=== PATIENT | female | born 1940 | race Caucasian/White ===

== ENCOUNTER 2023-03-16 11:05 | Outpatient (AMB) | payer MEDICARE, BC, SELFPAY ==
--- NOTE | 2023-03-16 11:16 | MHC.OFFVIS ---
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 She is here with her and daughter. They report patient has had some issues with memory over the last few years. The family reports she's had several tests done in the past and was found to be ok. The family doesn't feel she has had much memory loss but her PCP doesn't agree with test results from pt's neurological testing. Family feels her main issue is her hearing and mobility. 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 Required: No Allergies No Known Allergies Allergy (Verified 03/16/23 11:18) Medication List - Last Reconciled 03/16/23 by Shauna Odonnell MD antiarthritic combination no.2 (glucosamine-chondroitin) mg PO ascorbate calcium (vitamin C) 1 g PO Q6H ascorbate calcium (vitamin C) 1 g PO Q6H atorvastatin 10 mg PO DAILY biotin 1,000 mcg PO DAILY cholecalciferol (vitamin D3) 25 mcg PO DAILY fluticasone propionate 50 mcg/actuation (Allergy Relief (fluticasone)) 1 spray intranasal QDAY levothyroxine 75 mcg PO DAILY mecobalamin (vitamin B12) mcg PO pantoprazole 40 mg PO BID vitamins A,C,A-ueqm-xrqsxp 4,296 mcg-226 mg-90 mg (PreserVision AREDS) 1 cap PO BID HPI HPI Comments History of Present Illness Details 82y/o female comes for evaluation of memory issues. she has long h/o depression and anxiety since her 40s and well controlled. Her celexa was stopped few years ago and her depression worsened.she has episodes of crying, becomes very anxious during appointments.she is very attached to her dog and when her dog was diagnsoed with heart murmur she has been worrying a lot. her dog sleeps with her and that disrupts her sleep SHe is accompanied by her daughter and who helps with history.SHe reports that her memory issues are mild and calls them senior moments. she is unable to describe her memory issues she also has mobility issues and does not drive. she had a head injury 20 years ago when she fell off the stairs. [facility] Medical History Mild cognitive impairment Colonic polyp Post concussion syndrome Hiatal hernia Hyperlipidemia H pylori ulcer COPD (chronic obstructive pulmonary disease) Anxiety Depression Surgical History History of lumbosacral spine surgery Family History Father No problems noted. Mother No problems noted. Social History Household Members: Spouse Housing: House Alcohol intake: never Patient Tobacco Use Status: Never used Tobacco Physical Exam Vital Signs: Last Vital Signs Pulse 71 03/16/23 11:21 Resp 17 03/16/23 11:21 BP 146/92 H 03/16/23 11:21 Pulse Ox 94 03/16/23 11:21 Oxygen Delivery Method Room Air 03/16/23 11:21 BMI result Body Mass Index 26.6 Const General: cooperative, healthy appearing and anxious Nutritional Appearance: average body habitus Orientation/consciousness: patient oriented x3 Eyes Pupils: Equal, round and reactive pupils present Neuro General: patient oriented x3, tone normal, moves all extremities and no focal motor deficits Cranial nerves: Yes Equal, round and reactive pupils present, Yes Bilaterally intact EOM present, Yes Nystagmus not present, Yes Normal facial strength present and Yes Midline tongue present Cognition (Neuro): abnormal cognition Gait exam (Neuro): Antalgic gait present and Other gait observations present (wide based gait , antalgic, scoliosis ) Motor exam (neuro): Other motor observations present (syed weakness of foot dorsiflexion) Deep tendon reflexes (DTR's): Right triceps reflex intensity grade: 2+, Left triceps reflex intensity grade: 2+, Rt Biceps (C5, C6): 2+, Left biceps reflex intensity grade: 2+, Right brachioradialis reflex intensity grade: 2+, Left brachioradialis reflex intensity grade: 2+, Right patellar reflex intensity grade: 2+ and Left patellar reflex intensity grade: 2+ Coordination: [id number] test normal Orientation What is the (year) (season) (date) (day) (month)?: year, season, date, day and month Where are we (state) (county) (town or city) (hospital) (floor)?: state, county, town or city, hospital/clinic and floor Registration Name of 3 unrelated objects clearly and slowly, then ask patient to repeat all 3 of them. (1st repeat determines score. Make sure they can repeat all three): object 1, object 2 and object 3 Recall Ask patient to repeat the 3 items from question #3.: object 1 and object 2 Language Show patient a wristwatch & ask what it is. Repeat for pencil.: watch and pencil Ask the patient to repeat the phrase 'No ifs, ands, or buts' after you.: correct Ask the patient to 'take a piece of paper with their right hand' 'fold paper in half' 'place paper on floor': take paper in right hand, fold paper in half and place paper on floor Print the sentence 'CLOSE YOUR EYES' on a piece. If patient actually closes eyes then score.: followed written direction Give patient a blank piece of paper & ask to write a sentence. Score if it contains a noun & verb.: sentence contains subject and verb Ask patient to copy figure of intersecting pentagons exactly. Score if all 10 angles & 2 intersects are included.: all 10 angles present & 2 are intersected Score Score: 24 Assessment & Plan Assessment & Plan (1) Mild cognitive impairment: Comment: vs early dementia, related to poorly controlled anxiety, hearing impairment Code(s): G31.84 - Mild cognitive impairment of uncertain or unknown etiology Plan CT and lab reports from PCP for review Discussed about various risk factors for dementia including hearing impairment.encouraged he rto use hearing aids consistently I will restart her on citalopram 10mg qd for better control of her mood Suggested to use cane or walker for more stability. Medications: New citalopram 10 mg PO DAILY 30 tabs 6RF Coding Level of Care Code New Pt Level 4 (08871) Diagnoses Mild cognitive impairment G31.84
[2023-03-16 11:21] VITALS: BP 146/92; PULSE 71; RESP 17; O2SAT 94; BMI 26.6
== END 2023-03-16 12:11 | disposition home or self-care (01) ==
PROVIDERS: PCP Internal Medicine; Visit Provider Psychiatry & Neurology Neurology
DX: G31.84 Mild cognitive impairment of uncertain or unknown etiology (principal)
CPT/HCPCS: 99204

== ENCOUNTER → 2023-03-16 11:05 | Outpatient (BNVA) | payer MEDICARE, BC, SELFPAY | PROVIDERS: PCP Internal Medicine; Visit Provider Psychiatry & Neurology Neurology | DX: G31.84 Mild cognitive impairment of uncertain or unknown etiology (principal) | CPT/HCPCS: 99202 ==

== ENCOUNTER 2023-09-14 13:55 | Outpatient (AMB) | payer MEDICARE, BC, SELFPAY ==
--- NOTE | 2023-09-14 13:57 | A.OFFVIS_ITS ---
Vital Signs 09/14/23 13:58 Height 5 ft 3 in Weight 158 lb 2 oz BMI 28.0 BP 120/76 Blood Pressure Location Rt brachial Position Sitting Respiration 16 Pulse 72 Pulse Source Pulse Oximeter Pulse Oximetry (%) 76 L Oxygen Delivery Method Room Air Intake Visit Reasons: 6 mo f/u -Memory Decline-CONF Intake Note: Pt presents for a 6 month follow up for mild cognitive impairment. Route Delivery Manager Required: No Allergies No Known Allergies Allergy (Verified 09/14/23 13:57) Medication List - Last Reconciled 09/14/23 by Shauna Odonnell MD antiarthritic combination no.2 (glucosamine-chondroitin) mg PO ascorbate calcium (vitamin C) 1 g PO Q6H ascorbate calcium (vitamin C) 1 g PO Q6H atorvastatin 10 mg PO DAILY biotin 1,000 mcg PO DAILY cholecalciferol (vitamin D3) 25 mcg PO DAILY citalopram 10 mg PO DAILY fluticasone propionate 50 mcg/actuation (Allergy Relief (fluticasone)) 1 spray intranasal QDAY levothyroxine 75 mcg PO DAILY mecobalamin (vitamin B12) mcg PO pantoprazole 40 mg PO BID vitamins A,C,R-mmvg-mushqc 4,296 mcg-226 mg-90 mg (PreserVision AREDS) 1 cap PO BID HPI Comments Details: 83y/o female comes for follow up of memory issues. Her mood has improved with citalopram . SHe is accompanied by her daughter and who helps with history.SHe reports that her memory issues are mild and calls them senior moments. she is unable to describe her memory issues she also has mobility issues and does not drive. she had a head injury 20 years ago when she fell off the stairs. As per family she has short term recall is worse. [facility] Medical History Mild cognitive impairment Colonic polyp Post concussion syndrome Hiatal hernia Hyperlipidemia H pylori ulcer COPD (chronic obstructive pulmonary disease) Anxiety Depression Surgical History History of lumbosacral spine surgery Family History Father No problems noted. Mother No problems noted. Social History Household Members: Spouse Housing: House Alcohol intake: never Patient Tobacco Use Status: Never used Tobacco Physical Exam Vital Signs: Last Vital Signs Pulse 72 09/14/23 13:58 Resp 16 09/14/23 13:58 BP 120/76 09/14/23 13:58 Pulse Ox 76 L 09/14/23 13:58 Oxygen Delivery Method Room Air 09/14/23 13:58 BMI result Body Mass Index 28.0 Const General: cooperative, healthy appearing and anxious Nutritional Appearance: average body habitus Orientation/consciousness: patient oriented x3 Eyes Pupils: Equal, round and reactive pupils present Neuro General: patient oriented x3, tone normal, moves all extremities and no focal motor deficits Cranial nerves: Yes Equal, round and reactive pupils present, Yes Bilaterally intact EOM present, Yes Nystagmus not present, Yes Normal facial strength present and Yes Midline tongue present Cognition (Neuro): abnormal cognition Gait exam (Neuro): Antalgic gait present and Other gait observations present (wide based gait , antalgic, scoliosis ) Motor exam (neuro): Other motor observations present (syed weakness of foot dorsiflexion) Coordination: ehsjxk-by-xldb test normal Assessment & Plan Assessment & Plan (1) Mild cognitive impairment: Comment: vs early dementia, related to poorly controlled anxiety, hearing impairment Code(s): G31.84 - Mild cognitive impairment of uncertain or unknown etiology Category: Medical Plan CT and lab reports from PCP for review Discussed about various risk factors for dementia including hearing impairment.encouraged he rto use hearing aids consistently Continue citalopram 10mg qd for better control of her mood I will namenda XR 7 mg and titrate upto 28 mg qd Will add donepezil after she is stable on memantine. Medications: New memantine 7 mg PO DAILY 14 ea 0RF memantine start after 2 week course of 21mg 28 mg PO DAILY 30 ea 6RF memantine start after 2 week course of 7mg 14 mg PO DAILY 14 ea 0RF memantine start after the course of 14 mg 21 mg PO DAILY 14 ea 0RF Coding Level of Care Code Est Pt Level 4 (74353) Diagnoses Mild cognitive impairment G31.84
[2023-09-14 13:58] VITALS: BP 120/76; PULSE 72; RESP 16; O2SAT 76; BMI 28.0
== END 2023-09-14 14:41 | disposition home or self-care (01) ==
PROVIDERS: PCP Internal Medicine; Visit Provider Psychiatry & Neurology Neurology
DX: G31.84 Mild cognitive impairment of uncertain or unknown etiology (principal)
CPT/HCPCS: 99214

== ENCOUNTER → 2023-09-14 13:55 | Outpatient (BNVA) | payer MEDICARE, BC, SELFPAY | PROVIDERS: PCP Internal Medicine; Visit Provider Psychiatry & Neurology Neurology | DX: G31.84 Mild cognitive impairment of uncertain or unknown etiology (principal); G93.89 Other specified disorders of brain | CPT/HCPCS: 99212 ==

== ENCOUNTER 2024-04-03 14:10 | Outpatient (AMB) | payer MEDICARE, BC, SELFPAY ==
[2024-04-03 14:11] VITALS: BP 122/72; BMI 28.5
--- NOTE | 2024-04-03 14:11 | MHC.OFFVIS ---
Vital Signs 04/03/24 14:11 Height 5 ft 3 in Weight 161 lb BMI 28.5 BP 122/72 Blood Pressure Location Rt brachial Position Sitting Intake Visit Reasons: 6 mo f/u -Memory Decline Intake Note: patient presents for follow up memory Allergies No Known Allergies Allergy (Verified 04/03/24 14:14) Medication List - Last Reconciled 04/03/24 by Ken Camarena PA-C antiarthritic combination no.2 (glucosamine-chondroitin) mg PO ascorbate calcium (vitamin C) 1 g PO Q6H ascorbate calcium (vitamin C) 1 g PO Q6H atorvastatin 10 mg PO DAILY biotin 1,000 mcg PO DAILY cholecalciferol (vitamin D3) 25 mcg PO DAILY citalopram 10 mg PO DAILY fluticasone propionate 50 mcg/actuation (Allergy Relief (fluticasone)) 1 spray intranasal QDAY levothyroxine 75 mcg PO DAILY mecobalamin (vitamin B12) mcg PO memantine 28 mg PO DAILY pantoprazole 40 mg PO BID vitamins A,C,A-fheb-yqxfcs 4,296 mcg-226 mg-90 mg (PreserVision AREDS) 1 cap PO BID HPI Comments Details: 83y/o female comes for follow up of memory issues. Interval medical history: January procedure Trabeculoplasty, for glaucoma, [employer]. She is accompanied by her daughter and who help with history. She has walking difficulty and weakness, can't lift her feet, gait and balance issues, now uses the walker more so than cane daily. Distance is limited and shorter about 500 feet per outing. Her mood is irritable, combative, yells and refuses do activities. Goes to the senior center in [place] 2-3 times a week, has dinner there occasionally. She is unable to describe her memory issues, short term memory is going, doesn't formulate sentences and difficulty finding words per daughter. Sleeps more during the day, watches tv all night, 2x bathroom. Needs help with showering, getting dressed, cooking, and cleaning. She also has mobility issues and does not drive. MMSE 16 [facility] Medical History Mild cognitive impairment Colonic polyp Post concussion syndrome Hiatal hernia Hyperlipidemia H pylori ulcer COPD (chronic obstructive pulmonary disease) Anxiety Depression Surgical History History of lumbosacral spine surgery Family History Father No problems noted. Mother No problems noted. Social History Household Members: Spouse Housing: House Alcohol intake: never Patient Tobacco Use Status: Never used Tobacco Review of Systems Const All systems reviewed & are unremarkable except as noted in HPI and below Physical Exam Vital Signs: Last Vital Signs BP 122/72 04/03/24 14:11 BMI result Body Mass Index 28.5 Orientation What is the (year) (season) (date) (day) (month)?: year, season, date and month Where are we (state) (county) (town or city) (hospital) (floor)?: state, town or city and floor Registration Name of 3 unrelated objects clearly and slowly, then ask patient to repeat all 3 of them. (1st repeat determines score. Make sure they can repeat all three): object 1, object 2 and object 3 Language Show patient a wristwatch & ask what it is. Repeat for pencil.: watch and pencil Ask the patient to repeat the phrase 'No ifs, ands, or buts' after you.: incorrect Ask the patient to 'take a piece of paper with their right hand' 'fold paper in half' 'place paper on floor': take paper in right hand, fold paper in half and place paper on floor Print the sentence 'CLOSE YOUR EYES' on a piece. If patient actually closes eyes then score.: followed written direction Score Score: 16 Results Reviewed Results Reviewed: MRI 2023 CT 2023 Assessment & Plan Assessment & Plan (1) Dementia: Code(s): F03.90 - Unspecified dementia, unspecified severity, without behavioral disturbance, psychotic disturbance, mood disturbance, and anxiety Category: Medical Qualifiers: Dementia type: Alzheimer's Dementia severity: moderate Dementia behavioral or psychological symptom: with anxiety (2) Mild cognitive impairment: Comment: vs early dementia, related to poorly controlled anxiety, hearing impairment Code(s): G31.84 - Mild cognitive impairment of uncertain or unknown etiology Category: Medical (3) Depression: Code(s): F32.A - Depression, unspecified Category: Medical Qualifiers: Active/Remission status: currently active Major depression episode severity: unspecified Major depression recurrence: unspecified whether recurrent (4) Anxiety: Code(s): F41.9 - Anxiety disorder, unspecified Category: Medical Plan Reviewed MRI [address] 2023 Discussed various risk factors for dementia including hearing impairment, encouraged her to use hearing aids consistently. Continue citalopram 20mg PO qd for irritable mood. Continue Namenda XR 28 mg PO daily. Donepazil will discuss at next visit. Patient Education for health care technician burden, contact [facility] for assistance with ADLs. Follow up in 6 months, may call the clinic with any urgent concerns. MMSE was 16/30 today. Orders: [facility]errals [facility] Referral F03.90 - Unspecified dementia, unspecified severity, without behavioral disturbance, psychotic disturbance, mood disturbance, and anxiety Medications: Changed From citalopram 10 mg PO DAILY 90 tabs 1RF F32.A - Depression, unspecified To citalopram 20 mg (2 x 10 mg) PO DAILY 90 tabs 1RF depression F32.A - Depression, unspecified Discontinued memantine Discontinued Reason: Doctor's Order 7 mg PO DAILY 14 ea 0RF memantine start after 2 week course of 7mg Discontinued Reason: Doctor's Order 14 mg PO DAILY 14 ea 0RF memantine start after the course of 14 mg Discontinued Reason: Doctor's Order 21 mg PO DAILY 14 ea 0RF Coding Level of Care Code Est Pt Level 4 (78645) Diagnoses Dementia F03.90 Dementia type: Alzheimer's Dementia severity: moderate Dementia behavioral or psychological symptom: with anxiety Mild cognitive impairment G31.84 Depression F32.A Active/Remission status: currently active Major depression episode severity: unspecified Major depression recurrence: unspecified whether recurrent Anxiety F41.9
== END 2024-04-03 15:18 | disposition home or self-care (01) ==
PROVIDERS: PCP Internal Medicine; Visit Provider Physician Assistant Medical
DX: F03.90 Unspecified dementia, unspecified severity, without behavioral disturbance, psychotic disturbance, mood disturbance, and anxiety (principal); F32.A Depression, unspecified; F41.9 Anxiety disorder, unspecified
CPT/HCPCS: 99214

== ENCOUNTER → 2024-04-03 14:10 | Outpatient (BNVA) | payer MEDICARE, BC, SELFPAY | PROVIDERS: PCP Internal Medicine; Visit Provider Physician Assistant Medical | DX: F03.90 Unspecified dementia, unspecified severity, without behavioral disturbance, psychotic disturbance, mood disturbance, and anxiety (principal); F32.A Depression, unspecified; F41.9 Anxiety disorder, unspecified | CPT/HCPCS: 99212 ==

== ENCOUNTER 2024-10-02 14:56 | Outpatient (AMB) | payer MEDICARE, BC, SELFPAY ==
--- NOTE | 2024-10-02 15:06 | A.OFFVIS_ITS ---
Vital Signs 10/02/24 15:07 Height 5 ft 3 in Weight 166 lb BMI 29.4 BP 122/70 Blood Pressure Location Rt brachial Position Sitting Pulse 76 Pulse Source Pulse Oximeter Pulse Oximetry (%) 96 Oxygen Delivery Method Room Air Intake Visit Reasons: 6 mo follow up Intake Note: Patient presents follow up dementia medication. VNA not in chart Allergies No Known Allergies Allergy (Verified 04/03/24 14:14) HPI Comments Details: 83y/o female comes for follow up of cognitive decline. Patient had one fall 2 weeks ago, as Farshad was helping her to stand up from the couch, she lost her balance and fell on top of him and did not hit her head. Farshad did sustain a superficial 1inch laceration to the l. knee. She is accompanied by her daughter and Farshad who help with history today. MRI/ CT/ MMSE reviewed today. Gait: She has difficulty with walking due to gait and balance issues. She c/o fatigue as she can not get out of a chair, can't lift her feet, now uses the walker more days than her cane, we adjusted the height on the rolling walker so she is not hunched over, she declines PT today, as Farshad is working with her daily on exercises which help her strength and mobility. She continues to be limited with distance as it is getting shorter, now about 500 feet per outing, and starts to feel unsteady on her feet, stairs are very difficult for her to climb and avoids them she has to lean and hold on to rails to prevent falls. Her mood is pleasant today, however she can become combative and aggressive, yells and refuses do activities. She goes to the senior center in [place] 2-3 times a week, and has dinner there occasionally. Cognitive decline: She is unable to describe her memory issues, stm is poor at baseline and can not formulate sentences, has difficulty finding words per daughter and needs redirection multiple times a day. She is requiring more assistance with showering, getting dressed, cooking and cleaning. She can not complete puzzles, is sleeping more during the day, watches tv all night long with 2x bathroom breaks, Farshad requests a sleep aide to help with insomnia. He declines at home physical therapy today. MMSE was 16/30 at last visit, today she speaks about making cakes with her sister and says she enjoys this very much. We discuss starting melatonin 5mg po daily for 2 weeks if not helpful with insomnia she can start mirtazapine 7.5mg po daily at bedtime, and provided patient education re: sleep hygiene. She denies headache, migraines, visual disturbances and or vertigo. [facility] Medical History Mild cognitive impairment Colonic polyp Post concussion syndrome Hiatal hernia Hyperlipidemia H pylori ulcer COPD (chronic obstructive pulmonary disease) Anxiety Depression Surgical History History of lumbosacral spine surgery Family History Father No problems noted. Mother No problems noted. Social History Household Members: Spouse Housing: House Alcohol intake: never Patient Tobacco Use Status: Never used Tobacco Physical Exam Vital Signs: Last Vital Signs Pulse 76 10/02/24 15:07 BP 122/70 10/02/24 15:07 Pulse Ox 96 10/02/24 15:07 Oxygen Delivery Method Room Air 10/02/24 15:07 BMI result Body Mass Index 29.4 Const General: cooperative, healthy appearing and anxious Nutritional Appearance: average body habitus Orientation/consciousness: patient oriented x3 Eyes Pupils: Equal, round and reactive pupils present Neuro Other: Follows directions really well on exam and engages in conversation re: cake making activities. General: patient oriented x3, tone normal, moves all extremities and no focal motor deficits Cranial nerves: Yes Equal, round and reactive pupils present, Yes Normal facial strength present and Yes Midline tongue present Cognition (Neuro): abnormal cognition Gait exam (Neuro): Antalgic gait present and Other gait observations present (wide based gait , antalgic, scoliosis ) Motor exam (neuro): Other motor observations present (syed weakness of foot dorsiflexion) Coordination: [id number] test normal Psych Attitude: cooperative Results Reviewed Results Reviewed: PT evaluation noted 04/2024, recommendation to continue home care pt as patient requires assistance with ambulating and transferring due to lower extremity weakness bilaterally, PT would be helpful in strength and balance difficulties. Assessment & Plan Assessment & Plan (1) Insomnia: Code(s): G47.00 - Insomnia, unspecified Category: Medical Qualifiers: Insomnia type: primary Qualified Code(s): F51.01 - Primary insomnia (2) Dementia: Comment: pt is not interested in Leqembi or Kisunla therapy at this time. Code(s): F03.90 - Unspecified dementia, unspecified severity, without behavioral disturbance, psychotic disturbance, mood disturbance, and anxiety Category: Medical Qualifiers: Dementia type: Alzheimer's Dementia severity: mild Dementia behavioral or psychological symptom: with mood disturbance Qualified Code(s): G30.0 - Alzheimer's disease with early onset; F02.A3 - Dementia in other diseases classified elsewhere, mild, with mood disturbance (3) Mild cognitive impairment: Comment: vs early dementia, related to poorly controlled anxiety, hearing impairment Code(s): G31.84 - Mild cognitive impairment of uncertain or unknown etiology Category: Medical (4) Depression: Code(s): F32.A - Depression, unspecified Category: Medical Qualifiers: Major depression recurrence: unspecified whether recurrent Active/Remission status: currently active Major depression episode severity: mild Depression Type: major depressive disorder Qualified Code(s): F32.0 - Major depressive disorder, single episode, mild (5) Anxiety: Code(s): F41.9 - Anxiety disorder, unspecified Category: Medical Plan: sun downing? depression? Plan Dementia Discussed various risk factors for dementia including hearing impairment, vision, and sense or smell, encouraged her to use hearing aids consistently. Depression Continue citalopram 20mg PO qd for irritable mood. Dementia with mood disturbances Continue Namenda XR 28 mg PO daily and continue Donepazil daily Insomnia continue melatonin 5mg po daily 3 hours prior to bedtime, for 2 weeks if melatonin is ineffective may start her on Mirtazapine 7.5mg po daily at bedtime to regulate sleep cycle. Sleep hygiene reviewed to regulate the circardian rhythm and sleep disturbances. Patient Education for resident care spec burden, contact [facility] Elderly care services for assistance with home daycare director if needed. Follow up in 6 months, may call the clinic with any urgent concerns. Medications: New mirtazapine take one 7.5mg tablet by mouth at bedtime for insomnia. 7.5 mg PO BEDTIME 60 days 60 tabs 1RF insomnia MDD 7.5mg F03.90 - Unspecified dementia, unspecified severity, without behavioral disturbance, psychotic disturbance, mood disturbance, and anxiety, G47.00 - Insomnia, unspecified melatonin-pyridoxal phos (B6) 2.5 mg- 338 mcg take one tablet daily sublingually by mouth 1 tab sublingual BEDTIME 30 tabs 1RF sleep disturbances G47.00 - Insomnia, unspecified Patient Instructions: Sleep Hygiene provided: set a scheduled bedtime and wake time to help regulate the circadian rhythm and balance the release of pituitary hormones. Sleep in a dark room, temperatures below 68 degrees, and no devices n bed. Limit caffeinated products 6 hours prior to bed, and limit fluids 2-4 hours prior to bed. Gentle night yoga, diffusing essential oils, and playing soft music can be relaxing. 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
[2024-10-02 15:07] VITALS: BP 122/70; PULSE 76; O2SAT 96; BMI 29.4
--- OUTSIDE RECORDS SUMMARY | 2024-10-02 16:12 | XMS_ITS | Patient Health Record ---
Author Organization [facility] Diane maria de jesus [place] Address [address] [place] [address] Care Team Providers Care Sanitarian Aide Name Role Phone Manuela HENSON, Fuentes Nieves Primary Care Provider UnaLiana Corral Unavailable [phone] Allergies Allergen (clinical drug ingredient) Drug/Non Drug Allergy documented on EMR Reaction Allergy Type Onset Date Status Seasonale Unknown Drug Allergy Active Reason For Referral No Information Medications Medication SIG (Take, Route, Frequency, Duration) Notes Start Date End Date Status CeleXA Unknown Calcium 1500 MG 1 tablet with food O rally Twice a day for 30 day(s) Unknow n Pantoprazole Sodium Active Atorvastatin Calcium Active Citalopram Hydrobromide Active AFO-fixed . 1 . Wear daily for . Unknown Levothyroxine Sodium Active Multivitamins Unknow n Social History Tobacco Use: Social History Observation Description Date Details (start date - stop date) Former Smoker NA - NA Tobacco Use/Smoking Question Answer Notes Are you a: former smoker Additional Findings: Tobacco Non-User Current no n-smoker Alcohol Screen Question Answer Notes Did you have a drink containing alcohol in the p ast year? No Points 0 Interpretation Negative Tobacco use other than smoking: Question Answer Notes Are you an other tobacco user? No Problems Problem Type SNOMED Code ICD Code Onset Dates Problem Status W/U Status Risk Notes Problem Acquired hallux valgus (46095966) Hallux valgus (acquired), right foot (M20.11) Active confirmed Problem Other hammer toe(s) (acquired), right foot (M20.41) Active confirmed Encounters Encounter Location Date Provider Diagnosis [facility] [address] [place] [address] [facility] [address] [place] [address] 03/06/2024 Liana Aviles Plan Of Treatment Pending Test Test Name Order Date X ray : Foot, right 3V 07/15/2020 X ray : Ankle, right 3V 09/14/2011 Insurance Providers Payer Name Payer Address Payer Phone Subscriber Number Group Number Insured Name Patient Relationship to Insured Coverage Start Date Coverage End Date Medicare National Govt Sv[employer] [address] [facility] [address] [id number] Maria A Lawson Self - patient is the insured [employer] [address] [place] [address] [phone] [id number] Maria A Lawson Self - patient is the insured Medical (General) History Medical History History ICD Code measles Back,Hip,and Knee pain Depression Thyroid disorder Arthritis Surgical History Surgery Date(Month/Year) hand surgery uterine suspension
== END 2024-10-02 16:05 | disposition home or self-care (01) ==
LOC: HO.HSMS 14:56
PROVIDERS: PCP Internal Medicine; Visit Provider Physician Assistant Medical
DX: F51.01 Primary insomnia (principal); G30.0 Alzheimer's disease with early onset; F02.A3 Dementia in other diseases classified elsewhere, mild, with mood disturbance; F32.0 Major depressive disorder, single episode, mild; F41.9 Anxiety disorder, unspecified
CPT/HCPCS: 99214

== ENCOUNTER → 2024-10-02 14:56 | Outpatient (BNVA) | payer MEDICARE, BC, SELFPAY | PROVIDERS: PCP Internal Medicine; Visit Provider Physician Assistant Medical | DX: G30.0 Alzheimer's disease with early onset (principal); F02.A3 Dementia in other diseases classified elsewhere, mild, with mood disturbance; F51.01 Primary insomnia; F32.0 Major depressive disorder, single episode, mild; F41.9 Anxiety disorder, unspecified | CPT/HCPCS: 99212 ==

== ENCOUNTER 2025-01-04 11:01 | Outpatient (AMB) | payer MEDICARE, BC, SELFPAY ==
--- OUTSIDE RECORDS SUMMARY | 2024-03-13 04:30 | XMS_ITS ---
Author Organization [facility] Address [address] [place] [address] Care Team Providers Care Concrete Fence Builder Name Role Phone Fuentes Roy MD Primary Care Provider Unav Liana Carrillo Unavailable [phone] Allergies Allergen (clinical drug ingredient) Drug/Non Drug [...] Provider Diagnosis [facility] [address] [place] [address] 03/13/2024 Liana Aviles Plan Of Treatment No Information Progress Notes * Maria A RIZO MDOB:[birth year] (84 yo F)Acc No.[id number]:03/13/2024 Progress Notes Patient: Maria A AMADOR Provider: Contreras Aviles DPM :1940 A ge:83 Y S ex:Female Date:03/13/2024 Address:[address], [id number] Pcp:Fuentes Roy MD Subjective: * Chief Complaints: [...] 05/13/2023 Generated for Dewayne dejesus/Yaritza/Cemitting on: 0 01/04/2025 12:03 PM EDT
[2025-01-04 11:08] VITALS: BP 104/60; PULSE 82; O2SAT 96
--- NOTE | 2025-01-04 11:08 | MHC.OFFVIS ---
Vital Signs 01/04/25 11:08 Height 5 ft 3 in BMI Reason not done Patient refused/unable BP 104/60 Blood Pressure Location Rt brachial Position Sitting Pulse 82 Pulse Source Pulse Oximeter Pulse Oximetry (%) 96 Oxygen Delivery Method Room Air Intake Visit Reasons: 3m follow up Intake Note: Patient presents follow up Alzheimer's medication. Accompanied by: Daughter Allergies No Known Allergies Allergy (Verified 01/04/25 11:14) HPI Comments Details: 84y/o female comes for follow up of cognitive decline. She is accompanied with her daughter and Farshad who help with history taking. She has difficulty with walking due to gait and balance issues. She declines PT, however is doing 20 min of recumbent biking daily. She can not get out of a chair, can't lift her feet, now uses the rolling walker more days than her cane and now about 500 feet per outing. She starts to feel unsteady on her feet, going up or down the stairs is difficult for her, she will avoid them. She leans over to the side to hold on to the railings. Denies falls but is unsteady. Cognitive decline: She is unable to describe her memory issues. Stm is poor at baseline and can not formulate sentences she has difficulty finding words per daughter and needs repetition, visual cues and redirection multiple times a day. She is requires more assistance with ADLs, showering, getting dressed, cooking and cleaning. Her daughter assigns her chores to help out with dinner and engage her in activities. She can not complete puzzles, she sleeps through the day and watches tv all night long with 2 bathroom breaks. Her mood is pleasant today, however she can be stubborn, yells and refuses do activities. She goes to the [facility] center in [place] 2-3 x per week, and has dinner there occasionally.She takes melatonin as needed to help with insomnia but this is not helpful as she feels completely out of it. Mirtazapine 7.5mg was too strong for her. She denies headache, migraines, visual disturbances and or vertigo. Diet is good, she is selective about her food intake. [facility] Medical History Mild cognitive impairment Colonic polyp Post concussion syndrome Hiatal hernia Hyperlipidemia H pylori ulcer COPD (chronic obstructive pulmonary disease) Anxiety Depression Surgical History History of lumbosacral spine surgery Family History Father No problems noted. Mother No problems noted. Social History Household Members: Spouse Housing: House Alcohol intake: never Patient Tobacco Use Status: Never used Tobacco Physical Exam Vital Signs: Last Vital Signs Pulse 82 01/04/25 11:08 BP 104/60 01/04/25 11:08 Pulse Ox 96 01/04/25 11:08 Oxygen Delivery Method Room Air 01/04/25 11:08 Assessment & Plan Assessment & Plan (1) Insomnia: Code(s): G47.00 - Insomnia, unspecified Category: Medical Qualifiers: Insomnia type: primary Qualified Code(s): F51.01 - Primary insomnia (2) Dementia: Comment: pt is not interested in Leqembi or Kisunla therapy at this time. Code(s): F03.90 - Unspecified dementia, unspecified severity, without behavioral disturbance, psychotic disturbance, mood disturbance, and anxiety Category: Medical Qualifiers: Dementia behavioral or psychological symptom: with mood disturbance Dementia severity: mild Dementia type: Alzheimer's Qualified Code(s): G30.0 - Alzheimer's disease with early onset; F02.A3 - Dementia in other diseases classified elsewhere, mild, with mood disturbance (3) Mild cognitive impairment: Comment: vs early dementia, related to poorly controlled anxiety, hearing impairment Code(s): G31.84 - Mild cognitive impairment of uncertain or unknown etiology Category: Medical (4) Depression: Code(s): F32.A - Depression, unspecified Category: Medical Qualifiers: Active/Remission status: currently active Depression Type: major depressive disorder Major depression episode severity: mild Major depression recurrence: unspecified whether recurrent Qualified Code(s): F32.0 - Major depressive disorder, single episode, mild (5) Anxiety: Code(s): F41.9 - Anxiety disorder, unspecified Category: Medical Plan: sun downing? depression? Plan Dementia continue memantine 28mg po daily at bedtime with dinner. Speech and Hearing referral discussed various risk factors for dementia including hearing impairment, vision, and sense or smell, encouraged her to use hearing aids consistently, will referr to speech and hearing to assist. Depression continue citalopram 20mg PO qd for irritable mood. Insomnia continue melatonin 5mg po daily 3 hours prior to bedtime, for 2 weeks if melatonin, she could not tolerate mirtazapine. Sleep hygiene reviewed to regulate the circardian rhythm and sleep disturbances. MRI to evaluate for cerebral atrophy. Patient Education for patient care burden, contact [facility]. Elderly care services for assistance with home day care director if needed. Follow up in 6 months, Liquid vitamins if not able to tolerate otc supplements from [facility] or your favorite pharmacy. Labs requested from Joanne Villanueva at [facility] Dr. Manuela Rubio- 3 month follow up Orders: Orders MR head/brain wo/w con 01/04/25 G31.84 - Mild cognitive impairment of uncertain or unknown etiology, G30.0 - Alzheimer's disease with early onset, F02.A3 - Dementia in other diseases classified elsewhere, mild, with mood disturbance Referrals Speech and Hearing Referral G30.0 - Alzheimer's disease with early onset, F02.A3 - Dementia in other diseases classified elsewhere, mild, with mood disturbance, G31.84 - Mild cognitive impairment of uncertain or unknown etiology Medications: Refilled memantine start after 2 week course of 21mg 28 mg PO DAILY 30 ea 6RF Patient Instructions: Sleep Hygiene provided: set a scheduled bedtime and wake time to help regulate the circadian rhythm and balance the release of pituitary hormones. Sleep in a dark room, temperatures below 68 degrees, and no devices n bed. Limit caffeinated products 6 hours prior to bed, and limit fluids 2-4 hours prior to bed. Gentle night yoga, diffusing essential oils, and playing soft music can be relaxing. 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
--- OUTSIDE RECORDS SUMMARY | 2025-01-04 12:39 | XMS_ITS | Patient Health Record ---
Author Organization [facility] Address [address] [place] [address] Care Team Providers Care Cognos Bi Administrator Name Role Phone Manuela HENSON, Fuentes Nieves Primary Care Provider UnaLiana Corral Unavailable [phone] Allergies Allergen (clinical drug ingredient) Drug/Non Drug Allergy documented on EMR Reaction Allergy Type Onset Date Status Seasonale Unknown Drug Allergy Active Reason For Referral No Information Medications Medication SIG (Take, Route, Frequency, Duration) Notes Start Date End Date Status CeleXA Unknown Calcium 1500 MG 1 tablet with food O rally Twice a day; Duration: 30 day(s) Unknown Pantoprazole Sodium Active Atorvastatin Calcium Active Citalopram Hydrobromide Active AFO-fixed . 1 . Wear daily; Duration: [...] Status Risk Notes Problem Acquired hallux valgus (51083439) Hallux valgus (acquired), right foot (M20.11) Active confirmed Problem Acquired hammer toe of right foot ([id number] 105) Other hammer toe(s) (acquired), right foot (M20.41) Active confirmed Encounters Encounter Location Date Provider Diagnosis [facility] [address] [place] [address] 02/22/2024 Liana Aviles [facility] [address] [place] [address] 03/06/2024 Liana Aviles Plan Of Treatment Pending Test Test Name Order Date X ray : Foot, right 3V 07/15/2020 X ray : Ankle, right 3V 09/14/2011 Insurance Providers Payer Name Payer Address Payer Phone Subscriber Number Group Number Insured Name Patient Relationship to Insured Coverage Start Date Coverage End Date Medicare National Govt Svcs Inc [address] [place] [address] [id number] Maria A Lawson Self - patient is the insured [employer] [address] [place] [address] [id number] Maria A Lawson Self - patient is the insured Medical (General) History Medical History History ICD Code measles Back,Hip,and Knee pain Depression Thyroid disorder Arthritis Surgical History Surgery Date(Month/Year) hand surgery uterine suspension
--- OUTSIDE RECORDS SUMMARY | 2025-01-04 12:39 | XMS_ITS ---
Author Name [facility] Organization Unknown Care Team Organization Name Specialty Phone Email Start Date End Da te [facility] 12/20/2024 [facility] 03/10/2022 12/20/2023
--- OUTSIDE RECORDS SUMMARY | 2025-01-04 12:39 | XMS_ITS | Clinical Summary ---
Author Organization [address] Address [address] [place] [phone] Phone Care Team Providers Care Rampman Name Role Phone Fuentes Roy MD Primary Care Provider [phone] Allergies Active Allergy Reactions Criticality Noted Date Comments Other 03/04/2018 Seasonal Allergies Medications calcium carbonate/vitam in D3 (CALCIUM + D ORAL) OTC Active CYANOCOBALAMIN, VITAMIN B-12, ORAL Take by mouth daily. Active glucos sul 2KCl/msm/chond/ C/Mn (GLUCOSAMINE CHONDROITIN ORAL) 1 daily Active vit C/E/Zn/coppr/obed tein/zeaxan (PRESERVISION AREDS-2 ORAL) OTC Active Vitamin C tablet Take 100 mg by mouth daily. Active biotin 1 mg tablet OTC Active cholecalciferol (VITAMIN D-3) 25 mcg (1,000 unit) tablet OTC Active citalopram (CeleXA) 10 mg tablet Take 1 Tablet by mouth daily. Active fluticasone propionate (FLONASE) 50 mcg/actuation nasal spray 1 [place] by Nasal route daily. 04/16/20 15 Active memantine (NAMENDA XR) 28 mg extended release capsule Take 1 capsule (28 mg total) by mouth 1 (one) time each day. Neurologist Shauna Odonnell prescribed meds Active levothyroxine (SYNTHROID, LEVOTHROID) 50 mcg tablet TAKE 1 TABLET BY MOUTH DAILY WEDNESDAY- Y & TAKE 2 TABLETS ON SUNDAYS. 102 tablet 09/13/19 25 Active atorvastatin (LIPITOR) 10 mg tablet TAKE 1 TABLET BY MOUTH EVERY DAY 90 tablet 1 12/19/19 25 Active pantoprazole (PROTONIX) 40 mg EC tablet TAKE 1 TABLET BY MOUTH EVERY DAY DO NOT CRUSH, CHEW, OR SPLIT 90 tablet 1 01/04/20 25 Active pantoprazole (PROTONIX) 40 mg EC tablet Take 1 tablet (40 mg total) by mouth 1 (one) time each day. Do not crush, chew, or split. 90 each 08/16/19 25 025 Discontinued atorvastatin (LIPITOR) 10 mg tablet TAKE 1 TABLET BY MOUTH EVERY DAY 90 tablet 09/12/19 25 025 Discontinued Active Problems Problem Noted Date Diagnosed Date MCI (mild cognitive impairment) with memory loss 08/04/2022 Hiatal hernia 11/28/2018 Overview (04/10/2024): S/p EGD for epigastric pain Major depressive disorder, r ecurrent, in full remission with anxious distress ([facility] V24) 10/29/2016 Hypercholesterolemia 10/28/2015 Hypothyroidism 11/26/2014 Allergic rhinitis 08/29/2011 Macular degeneration 06/24/2011 H. pylori infection 06/22/2011 Overview (04/10/2024): Treated by GI, stool antigen (-) 2010 COPD (chronic obstructive pu lmonary disease) ([facility] V24, [facility] V28) 01/13/2011 Overview (04/10/2024): Mild, well controlled with occasional Alb MDI prn Postconcussion syndrome 02/14/2010 Overview (04/10/2024): S/p fall, follows with neurology Colon polyps 04/02/2008 Overview (04/10/2024): Dr. Alexander, gastroenterology, note 08/07 in EMR Depression 07/16/2006 Low back pain 07/16/2006 Overview (04/10/2024): mri 09/06: IMPRESSION: Spondylosis with relatively advanced facet arthropathy. Right posterior disc herniation at L5-S1. Right S1 nerve root displacement. Right S1 nerve root displacement and probable compression. Immunizations Name Administration Dates Next Due H1N1 Inj Preservative Free 06/06/2009 Influenza trivalent, 0.5mL ( Fluad) 65yo and older 02/13/2022,01/20/2021,02/01/2020,02/02,01/28/2017,03/12/2016 Influenza trivalent, 0.5mL, preservative free (Fluarix; FluLaval; Fluzone) ages 6mo and older (Afluria) 3 years and older 03/27/2015,03/15/2014,02/07/2013,02/02,01/13/2011,02/14/2010,01/18/2009 ,03/03/2008,05/04/2007,03/10/2005 Influenza, Unspecified 02/02/2019,01/28/2017 Pfizer (ages 12 & older) Biv alent, COVID-19 02/13/2022 Pneumococcal conjugate 13 va lent (Prevnar 13, PCV13) 2mo and older 01/03/2018,03/27/2016 Pneumococcal polysaccharide 23 valent (Pneumovax 23) 2yo and older 12/21/2006 Tdap Tetanus diptheria acell ular pertussis (Boostrix; Adacel) 7yo and older 12/21/2006 Surgical History Surgery Date Site/Laterality Comments OTHER SURGICAL HISTORY PROCEDURE: MA UTERINE SUSPENSION W/WO SHORTENING LIGAMENTS SPX Medical History Medical History Date Comments Personal history of colonic polyps 07/31/2005 DX:Personal history of colonic polyps; COMMENT: followed by Dr. Wan, last colonoscopy 08/15/04. follow up due 2006 Lumbago 07/16/2006 DX:Lumbago Depressive disorder, not els ewhere classified 07/16/2006 DX:Depressive disorder, not elsewhere classified Allergy, unspecified not els ewhere classified 12/21/2006 DX:Allergy, unspecified not elsewhere classified Colon polyps 04/02/2008 DX:Colon polyps; COMMENT: Dr. Alexander, gastroenterology, note 08/07 in EMR Postconcussion syndrome 02/14/2010 DX:Postc oncussion syndrome COPD (chronic obstructive pu lmonary disease) ([facility] V24, [facility] V28) 01/13/2011 DX:COPD (chronic o bstructive pulmonary disease) ([facility]) H. pylori infection 06/22/2011 DX:H. pylori infection Allergic rhinitis 08/29/2011 DX:Allergic rh initis Hypercholesterolemia 10/28/2015 DX:Hypercho lesterolemia Hiatal hernia 11/28/2018 DX:Hiatal hernia ; COMMENT: S/p EGD for epigastric pain Family History Medical History Relation Name Comments Other: thyroid disease Daughter Diabetes Father Heart attack Father at age 56 Breast cancer Sister 40 Relation Name Status Comments Daughter Father Sister 40 Alive Social History Tobacco Use Types Packs/Day Years Used Date Smoking Tobacco: Former Cigarettes Smokeless Tobacco: Never Tobacco Cessation:Counseling Given: Not Answered Alcohol Use Standard Drinks/Week Comments No 0 (1 standard drink = 0.6 oz pur e alcohol) Comments Unknown Sex and Gender Information Value Date Recorded Sex Assigned at Not on file Legal Sex Female 5:23 PM EST Gender Identity Not on file Sexual Orientation Not on file Obstetrics History Last Filed Vital Signs Vital Sign Reading Time Taken Comments Blood Pressure 122/92 08/15/2024 3:38 PM EDT provider will rechk Pulse 76 08/15/2024 3:38 PM EDT Temperature 35.6 C (96 F) 08/15/2024 3:38 PM EDT Respiratory Rate 14 08/15/2024 3:38 PM EDT Oxygen Saturation 95% 08/15/2024 3:3 8 PM EDT Inhaled Oxygen Concentration - - Weight 72.3 kg (159 lb 6.4 oz) 08/15/2024 3:38 PM EDT Height 160 cm (5' 3 ) 08/15/2024 3:38 PM EDT Body Mass Index 28.24 08/15/2024 3:38 PM EDT Plan of Treatment Upcoming Encounters Date Type Department Care Team (Late st Contact Info) Description 01/08/2025 3:45 PM EDT Office Visit Adult Medicine [place] - [address] [phone] Fuentes Roy MD [address] [place] [address] 02/15/2025 3:00 PM EDT Appointment Radiology Department - [address] [phone] Health Maintenance Due Date Last Done Comments Zoster Vaccines (1 of 2) 08/14/1991 RSV Immunization Adult Patients (1 - 1-dose 75+ series) 2016 DTaP,Tdap,and Td Vaccines (2 - Td or Tdap) 12/21/2016 12/21/2006 Colorectal Cancer Screening: Stool Based Tests (FOBT/FIT) 04/11/2022 Social Influencers of Health Screening 04/11/2022 Depression Screening 05/03/2024 07/12/2023 Medicare Annual Wellness Visit 07/11/2024 07/12/2023 COVID-19 Vaccine ( season) 2025 02/08/2024, 01/22/2023, 02/13/2022, Additional history exists Influenza Vaccine (#1) 2025 , 01/22/2023, 02/13/2022, Additional history exists Falls Risk Assessment 01/11/2025 01/12/2024 Osteoporosis Screening (Bone Density Screening) 01/05/2027 01/05/2017 Cholesterol Screening (Lipid Panel) 06/08/2027 06/08/2022 Pneumococcal Vaccine: 50+ Years Completed 01/03/2018, 03/27/2016, 12/21/2006 HIB Vaccines Aged Out No longer eligi ble based on patient's age to complete this topic HPV Vaccines Aged Out No longer eligi ble based on patient's age to complete this topic Hepatitis A Vaccines Aged Out No long er eligible based on patient's age to complete this topic Hepatitis B Vaccines Aged Out No long er eligible based on patient's age to complete this topic IPV Vaccines Aged Out No longer eligi ble based on patient's age to complete this topic MMR Vaccines Aged Out No longer eligi ble based on patient's age to complete this topic Meningococcal ACWY Vaccine Aged Out N o longer eligible based on patient's age to complete this topic Meningococcal B Vaccine Aged Out No l onger eligible based on patient's age to complete this topic RSV Immunization Patients Under 20 months Aged Out No longer eligible based on patient's age to complete this topic Varicella Vaccines Aged Out No longer eligible based on patient's age to complete this topic Procedures Procedure Name Priority Date/Time Associated Diagnosis Comments FALLS RISK ASSESSMENT Routine 01/12/2024 DEPRESSION SCREENING Routine 07/12/2023 LIPID PANEL Routine 06/08/2022 DXA BONE DENSITY STUDY 1+ SITS AXIAL SKEL Routine 01/05/2017 4:09 PM EDT Pain in right hip Pain in left hip Other specified disorders of bone density and structure, unspecified site from Last 3 Months or Most Recently Relevant to Health Maintenance Results * Falls Risk Assessment (01/12/2024) Pathologist [facility] Falls Risk Assessment Abstracted Historical Provider HEALTH MAINTENANCE Final Result * Depression Screening (07/12/2023) Pathologist [facility] Depression Screening Abstracted [facility] Provider HEALTH MAINTENANCE Final Result * (ABNORMAL) Lipid panel (06/08/2022) [facility] LDL/HDL Ratio 4 0 - 4 Triglycerides 233(A) 0 - 150 mg/dL Cholesterol 183 0 - 200 mg/dL HDL 48 >=40 mg/dL LDL Cholesterol 89 0 - 100 mg/dL Blood Venous blood specimen / Unknown [facility] Provider LAB BLOOD ORDERABLES Yesica l Result * DXA BONE DENSITY STUDY 1+ SITS AXIAL SKEL (01/05/2017 4:09 PM EDT) Anatomical Region Laterality Modality Bone Densitometr y 01/01/2017 10:5 2 AM EDT Narrative 01/06/2017 5:31 PM EDT BONE DENSITY Lumbar Spine T-score is +1.0 (SD relative to 20-29 y/o adult) Z-score is +3.4 (SD relative to age matched peers) This is normal by criteria defined by the WHO. Left Hip T-score is -0.8 Z-score is +1.3 This is normal by criteria defined by the WHO. Comparison exam(s): significant decrease in bone density of hip when compared to most recent bone density examination Confidence level is +/-95%. Impression: Based on the World Health Organization criteria, Maria A Rizo should be classified as having normal bone density. The [facility] Department of Internal Medicine recommends using National Osteoporosis Foundation (NOF) guidelines in treatment decisions related to osteoporosis. NOF guidelines suggest considering treatment for postmenopausal women and men aged 50 or older presenting with the following: History of hip or vertebral fracture. T-score less than or equal to -2.5 (DXA) at the femoral neck, total hip, or spine, after appropriate evaluation to exclude secondary causes. Low bone mass (T-score between -1.0 and -2.5 at the femoral neck or spine) AND a 10-year probability of a hip fracture greater than or equal to 3% OR a 10-year probability of a major osteoporosis-related fracture greater than or equal to 20% based on the [place]-adapted WHO algorithm Please note that all treatment decisions require clinical judgment and consideration of individual patient factors, including patient preferences, co-morbidities, previous drug use, risk factors not captured in the FRAX model (e.g., frailty, falls, vitamin D deficiency, increased bone turnover, interval significant decline in bone density) and possible under- or over-estimation of fracture risk by FRAX. Procedure Note Arianna Colon MD - 06/04/2023 BONE DENSITY Lumbar Spine T-score is +1.0 (SD relative to 20-29 y/o adult) Z-score is +3.4 (SD relative to age matched peers) This is normal by criteria defined by the WHO. Left Hip T-score is -0.8 Z-score is +1.3 This is normal by criteria defined by the WHO. Comparison exam(s): significant decrease in bone density of hip whencompared to most recent bone density examination Confidence level is +/-95%. Impression: Based on the World Health Organization criteria, Maria A Rizo shouldbe classified as having normal bone density. The [facility] Department of Internal Medicine recommendsusing National Osteoporosis Foundation (NOF) guidelines in treatmentdecisions related to osteoporosis. NOF guidelines suggest consideringtreatment for postmenopausal women and men aged 50 or older presentingwith the following: History of hip or vertebral fracture. T-score less than or equal to -2.5 (DXA) at the femoral neck, total hip,or spine, after appropriate evaluation to exclude secondary causes. Low bone mass (T-score between -1.0 and -2.5 at the femoral neck or spine)AND a 10-year probability of a hip fracture greater than or equal to 3% ORa 10-year probability of a major osteoporosis-related fracture greaterthan or equal to 20% based on the [place]-adapted WHO algorithm Please note that all treatment decisions require clinical judgment andconsideration of individual patient factors, including patientpreferences, co-morbidities, previous drug use, risk factors not capturedin the FRAX model (e.g., frailty, falls, vitamin D deficiency, increasedbone turnover, interval significant decline in bone density) and possibleunder- or over-estimation of fracture risk by FRAX. Arianne MURRY 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
== END 2025-01-04 12:01 | disposition home or self-care (01) ==
LOC: HO.HSMS 11:01
PROVIDERS: PCP Internal Medicine; Visit Provider Physician Assistant Medical
DX: F51.01 Primary insomnia (principal); G30.0 Alzheimer's disease with early onset; F02.A3 Dementia in other diseases classified elsewhere, mild, with mood disturbance; G31.84 Mild cognitive impairment of uncertain or unknown etiology; F32.0 Major depressive disorder, single episode, mild; F41.9 Anxiety disorder, unspecified
CPT/HCPCS: 99214

== ENCOUNTER → 2025-01-04 11:01 | Outpatient (BNVA) | payer MEDICARE, BC, SELFPAY | PROVIDERS: PCP Internal Medicine; Visit Provider Physician Assistant Medical | DX: F51.01 Primary insomnia (principal); G30.0 Alzheimer's disease with early onset; F02.A3 Dementia in other diseases classified elsewhere, mild, with mood disturbance; G31.84 Mild cognitive impairment of uncertain or unknown etiology; F32.0 Major depressive disorder, single episode, mild; F41.9 Anxiety disorder, unspecified | CPT/HCPCS: 99212 ==

== ENCOUNTER 2025-01-12 18:20 | Outpatient (REF) | payer MEDICARE, BC, SELFPAY ==
--- OUTSIDE RECORDS SUMMARY | 2024-03-13 04:30 | XMS_ITS ---
Author Organization [facility] Address [address] [place] [address] Care Team Providers Care Planer Setup Operator Name Role Phone Fuentes Roy MD Primary Care Provider Unav Liana Carrillo Unavailable [phone] Allergies Allergen (clinical drug ingredient) Drug/Non Drug [...] 03/13/2024 Encounters Encounter Location Date Provider Diagnosis [facility] [address] [place] [address] 03/13/2024 Liana Aviles Plan Of Treatment No Information Progress Notes * Maria A RIZO MDOB:[birth year] (84 yo F)Acc No.[id number]:03/13/2024 Progress Notes Patient: Maria A AMADOR Provider: Contreras Aviles DPM :1940 A ge:83 Y S ex:Female Date:03/13/2024 Address:[address], [id number] Pcp:Fuentes Roy MD Subjective: * Chief Complaints: [...] Aviles DPM Date: 05/13/2023 Generated for Dewayne dejesus/Yaritza/Cemitting on: 0 01/12/2025 06:23 PM EDT
--- OUTSIDE RECORDS SUMMARY | 2025-01-08 15:45 | XMS_ITS | Encounter Summary ---
Author Organization [facility] Address [address] [place] [phone] Care Team Providers Care Media Center Assistant Name Role Phone Fuentes Roy MD Primary Care Provider [phone] Encounter Details Date Type Department Care Team (Late st Contact Info) Description 01/08/2025 3:45 PM EDT Office Visit Adult Medicine [facility] [address] [place] [phone] Fuentes Roy MD [address] [place] [id number] Alzheimer's disease (CMS/HCC V24, CMS/HCC V28) (Primary Dx); Major depressive disorder, recurrent, in full remission with anxious distress (CMS/HCC V24); MCI (mild cognitive impairment) with memory loss; Chronic obstructive pulmonary disease, unspecified COPD type (CMS/HCC V24, CMS/HCC V28); Hypercholesterolemia ; Hypothyroidism, unspecified type; Depression, unspecified depression type Social History Tobacco Use Types Packs/Day Years [...] on file Sexual Orientation Not on file documented as of this encounter Last Filed Vital Signs Vital Sign Reading Time Taken Comments Blood Pressure 132/80 01/08/2025 3:53 PM EDT Pulse 78 01/08/2025 3:53 PM EDT Temperature 36.7 C (98 F) 01/08/2025 3:53 PM EDT Respiratory Rate - - Oxygen Saturation - - Inhaled Oxygen Concentration - - Weight - - Height 165.1 cm (5' 5 ) 01/08/2025 3:53 PM EDT Body Mass Index - - documented in this encounter Progress Notes * Fuentes Roy MD - 01/08/2025 3:45 PM EDT CHIEF COMPLAINT: No chief complaint on file. IDENTIFIER: Maria A Rizo is a 84 y.o. old female. HPI: Pt presents for evaluation of multiple medical problems. Today patient is accompanied by her who himself is suffering from significant medical issues, and his daughter. Patient tells me she feels fine, she is smiling, holding her 's hand. No recent fall or injury her breathing status appears to be stable. ROS: GENERAL: Negative for malaise, significant weight loss and fever RESPIRATORY: No cough, wheezing or shortness of breath CARDIOVASCULAR: Negative for chest pain, leg swelling and palpitations GI: Negative for abdominal discomfort, changes in bowel habits, blood in stool or black stools HEMATOLOGY/LYMPHOLOGY: No prolonged bleeding, easy bruising, or swollen lymph nodes ENDOCRINE: Negative for cold or heat intolerance, polyuria, polydipsia and goiter NEURO: No persistent headache, fainting, seizures, strokes, TIAs, weakness, numbness or tingling, See HPI PAST MEDICAL HISTORY: Patient Active Problem List Diagnosis Date Noted MCI (mild cognitive impairment) with memory loss 08/04/2022 Hiatal hernia 11/28/2018 Major depressive disorder, recurrent, in full remission with anxious distress ([facility] V24) 10/29/2016 Hypercholesterolemia 10/28/2015 Hypothyroidism 11/26/2014 Allergic rhinitis 08/29/2011 Macular degeneration 06/24/2011 H. pylori infection 06/22/2011 COPD (chronic obstructive pulmonary disease) ([facility] V24, [facility] V28) 01/13/2011 Postconcussion syndrome 02/14/2010 Colon polyps 04/02/2008 Depression 07/16/2006 Low back pain 07/16/2006 SOCIAL HISTORY: Social History Tobacco Use Smoking status: Former Current packs/day: 0.20 Types: Cigarettes Smokeless tobacco: Never Substance Use Topics Alcohol use: No FAMILY HISTORY: Family Status Relation Name Status Father (Not Specified) Sister 40 Alive Daughter (Not Specified) No partnership data on file Family History Problem Relation Name Age of Onset Heart attack Father at age 56 Diabetes Father Breast cancer Sister 40 Other (Other: thyroid disease) Daughter ACTIVE MEDICATIONS: Outpatient Medications Marked as Taking for the 01/08/25 encounter (Office Visit) with Fuentes Roy MD Medication Sig Dispense Refill atorvastatin (LIPITOR) 10 mg tablet TAKE 1 TABLET BY MOUTH EVERY DAY 90 tablet 1 biotin 1 mg tablet OTC calcium carbonate/vitamin D3 (CALCIUM + D ORAL) OTC cholecalciferol (VITAMIN D-3) 25 mcg (1,000 unit) tablet OTC citalopram (CeleXA) 10 mg tablet Take 1 Tablet by mouth daily. CYANOCOBALAMIN, VITAMIN B-12, ORAL Take by mouth daily. fluticasone propionate (FLONASE) 50 mcg/actuation nasal spray 1 [place] by Nasal route daily. glucos sul 2KCl/msm/chond/C/Mn (GLUCOSAMINE CHONDROITIN ORAL) 1 daily levothyroxine (SYNTHROID, LEVOTHROID) 50 mcg tablet TAKE 1 TABLET BY MOUTH DAILY WEDNESDAY-WEDNESDAY & TAKE 2 TABLETS ON SUNDAYS. 102 tablet 0 memantine (NAMENDA XR) 28 mg extended release capsule Take 1 capsule (28 mg total) by mouth 1 (one)time each day. Neurologist Shauna Odonnell prescribed meds pantoprazole (PROTONIX) 40 mg EC tablet TAKE 1 TABLET BY MOUTH EVERY DAY DO NOT CRUSH, CHEW, OR SPLIT 90 tablet 1 vit C/E/Zn/coppr/lutein/zeaxan (PRESERVISION AREDS-2 ORAL) OTC Vitamin C tablet Take 100 mg by mouth daily. ALLERGIES: Other PHYSICAL EXAM: Blood pressure 132/80, pulse 78, temperature 36.7 ??C (98 ??F), temperature source Oral, height 1.651 m (65 ). Body mass index is 26.53 kg/m??. BMI is greater than 25.0 (above the normal range) - seePlan APPEARANCE: Alert and in no acute distress, smiling, well hydrated, well groomed MOUTH/THROAT: no erythema, lesions, or exudates HEART: Normal S1-S2 LUNG: clear to auscultation bilaterally ABDOMEN: Bowel sounds normoactive, no bruits and soft, non-tender, without organomegaly or palpablemasses EXTREMITIES: No edema and DJD changes NEURO: Patient recognized me by name, she answers questions appropriately, mostly accurately as confirmed by family, patient appears to be yelling to the family to be her , she has limited active participation SKIN: Skin color, texture, turgor normal. No rashes or lesions. LABS: Lab Results Component Value Date TSH 2.86 07/31/2024 BP Readings from Last 5 Encounters: 01/08/25 132/80 08/15/24 (!) 122/92 07/12/24 122/80 01/12/24 120/60 06/29/23 112/66 Wt Readings from Last 5 Encounters: 08/15/24 72.3 kg (159 lb 6.4 oz) 07/12/24 72.1 kg (159 lb) 01/12/24 70.3 kg (155 lb) 07/12/23 70.3 kg (155 lb) 06/29/23 69.7 kg (153 lb 9.6 oz) IMPRESSION: 1. Alzheimer's disease (CMS/[facility] V24, CMS/[facility] V28) 2. Major depressive disorder, recurrent, in full remission with anxious distress (CMS/[facility] V24) 3. MCI (mild cognitive impairment) with memory loss 4. Chronic obstructive pulmonary disease, unspecified COPD type (CMS/HCC V24, CMS/HCC V28) 5. Hypercholesterolemia 6. Hypothyroidism, unspecified type 7. Depression, unspecified depression type PLAN: Pt presents for evaluation of multiple medical problems. Today patient is accompanied by her who himself is suffering from significant medical issues, and his daughter. Patient tells me she feels fine, she is smiling, holding her 's hand. No recent fall or injury her breathing status appears to be stable. 1 Alzheimer's disease/cognitive impairment. I noted patient is on Namenda, I noted subtle but definite progression. I had extensive discussion with the patient, , and daughter. Patient clearlyis very attached and look at the for reassurance all the time during today's visit A we discussed progressive nature of the condition. B we discussed fall precaution injury prevention C we discussed limited to treatment options at that stage, I encouraged social participation, encouraged patient to pick back up craft making. D we discussed aggressive care, daughter stated patient and has updated there will. Patienthusband is DNR status, we will continue discussed this issue. I have to say patient's other chronic medical issue appears to be quite stable. 2 depression in elderly population may presents with different manifestations. Again strongly encouraged family's involvement, patient is not teary-eyed. Will continue SSRI. 3 TSH in therapeutic range discussed importance of precise control of hypothyroidism medically in this clinical setting. 4 patient respiratory status quite stable encouraged gentle routine activities. Discussed immunization. With patient's comorbidity, I may not aggressively pursue colonoscopy screening etc. No orders of the defined types were placed in this encounter. ADDITIONAL ORDERS: None Fuentes Roy MD on 01/10/2025 at 8:27 AM EDT documented in this encounter Plan of Treatment Upcoming Encounters Date Type Department Care Team (Late st Contact Info) Description 02/15/2025 3:00 PM EDT Appointment Radiology Department - [address] [phone] 05/16/2025 3:45 PM EST Office Visit [facility] [place] - [address] [phone] Fuentes Roy MD [address] [place] [address] documented as of this encounter Visit Diagnoses Diagnosis Alzheimer's disease ([facility]/HCC V24, CMS/[facility] V28)- Primary Alzheimer's disease Major depressive disorder, recurrent, in full remission with anxious distress (CMS/HCC V24) MCI (mild cognitive impairment) with memory loss Mild cognitive impairment, so stated Chronic obstructive pulmonary disease, unspecified COPD type (CMS/HCC V24, CMS/HCC V28) Hypercholesterolemia Pure hypercholesterolemia Hypothyroidism, unspecified type Depression, unspecified depression type Encounter for screening mammogram for breast cancer documented in this encounter Care Teams Media Center Assistant Relationship Specialty Start Date End Date Fuentes Roy MD [address] [place] [address] PCP - General 06/06/03 documented as of this encounter
--- NOTE | ~2025-01-12 | MR_ITS ---
CLINICAL HISTORY: G31.84 - Mild cognitive impairment of uncertain or unknown etiology MR of the brain with and without contrast Comparison: None Findings: No acute infarction, hemorrhage, mass-effect or herniation. No abnormal enhancement. The lateral ventricles are enlarged. The temporal horns measure up to 1.2 cm in anterior-posterior dimension. Cavum septum pellucidum et vergae, a normal variant. The 3rd ventricle measures up to 1.2 cm in transverse dimension, Which is prominent in size. The 4th ventricle is nonenlarged. Extra-axial spaces are also enlarged, although to a lesser extent thin lateral and 3rd ventricles Confluent increased signal intensity is seen in the deep and periventricular white matter on the T2/FLAIR sequences. Encephalomalacia in the left cerebellum measuring 0.4 x 1.0 0.4 cm No extra-axial fluid collection or mass. Unremarkable sella. Intact flow voids. Normal orbits. Clear paranasal sinuses and mastoid air cells. Unremarkable osseous structures. Impression: [Enlargement of the ventricles could be secondary to parenchymal atrophy. Mild hydrocephalus, such as normal pressure hydrocephalus may also be considered. Confluent increased signal intensity is seen in the deep and periventricular white matter on the T2/FLAIR sequences is most commonly the sequela of chronic small-vessel ischemic disease and would be severe. There may be a component of transependymal flow of cerebral spinal fluid. This document has been electronically signed by: Malika Pandya MD on 01/19/2025 17:38:08
--- OUTSIDE RECORDS SUMMARY | 2025-01-12 18:23 | XMS_ITS | Patient Health Record ---
Author Organization [facility] Address [address] [place] [address] Care Team Providers Care Burn Out Tender Lace Name Role Phone Manuela HENSON, Fuentes Nieves Primary Care Provider UnaLiana Corral Unavailable [phone] Allergies Allergen (clinical drug ingredient) Drug/Non Drug [...] Status Risk Notes Problem Acquired hallux valgus (56425984) Hallux valgus (acquired), right foot (M20.11) Active confirmed Problem Acquired hammer toe of right foot (7751200222409 105) Other hammer toe(s) (acquired), right foot (M20.41) Active confirmed Encounters Encounter Location Date Provider Diagnosis [facility] [address] [place] [address] 02/22/2024 Liana Aviles [facility] [address] [place] [address] 03/06/2024 Liana Aviles Plan Of Treatment Pending Test Test Name Order Date X ray : Foot, right 3V 07/15/2020 X ray : Ankle, right 3V 09/14/2011 Insurance Providers Payer Name Payer Address Payer Phone Subscriber Number Group Number Insured Name Patient Relationship to Insured Coverage Start Date Coverage End Date Medicare National [employer] [address] [place] [address] [id number] Maria A Lawson Self - patient is the insured [employer] [address] [place] [address] [phone] [id number] Maria A Lawson Self - patient is the insured Medical (General) History Medical History History ICD Code measles Back,Hip,and Knee pain Depression Thyroid disorder Arthritis Surgical History Surgery Date(Month/Year) hand surgery uterine suspension
--- OUTSIDE RECORDS SUMMARY | 2025-01-12 18:23 | XMS_ITS | Clinical Summary ---
Author Organization [address] Address [address] [place] [phone] Phone Care Team Providers Care Leasing Consultant Name Role Phone Fuentes Roy MD Primary Care Provider Allergies Active Allergy Reactions Criticality Noted Date [...] propionate (FLONASE) 50 mcg/actuation nasal spray 1 [place] by Nasal route daily. 04/16/20 15 Active [...] ecurrent, in full remission with anxious distress ([facility] V24) 10/29/2016 Hypercholesterolemia 10/28/2015 Hypothyroidism 11/26/2014 Allergic rhinitis 08/29/2011 Macular degeneration 06/24/2011 H. pylori infection 06/22/2011 Overview (04/10/2024): Treated by GI, stool antigen (-) 2010 COPD (chronic obstructive pu lmonary disease) ([facility] V24, [facility] V28) 01/13/2011 Overview (04/10/2024): Mild, [...] S1 nerve root displacement and probable compression. Encounters Date Type Department Care Team Description 01/08/2025 3:45 PM EDT Office Visit Adult Medicine [address] [address] Fuentes Roy MD Alzheimer's disease ([facility] V24, [facility] V28) (Primary Dx); Major depressive disorder, recurrent, in full remission with anxious distress ([facility] V24); MCI (mild cognitive impairment) with memory loss; Chronic obstructive pulmonary disease, unspecified COPD type ([facility] V24, [facility] V28); Hypercholesterolemia; Hypothyroidism, unspecified type; Depression, unspecified depression type from Last 3 Months Immunizations Name Administration Dates Next Due H1N1 [...] Date Site/Laterality Comments OTHER SURGICAL HISTORY PROCEDURE: HI UTERINE SUSPENSION W/WO SHORTENING LIGAMENTS SPX Medical [...] syndrome COPD (chronic obstructive pu lmonary disease) ([facility] V24, [facility] V28) 01/13/2011 DX:COPD (chronic o bstructive pulmonary disease) ([facility]) H. pylori infection 06/22/2011 DX:H. [...] F) 01/08/2025 3:53 PM EDT Respiratory Rate 14 08/15/2024 3:38 PM EDT Oxygen Saturation 95% 08/15/2024 3:38 PM EDT Inhaled Oxygen Concentration - - Weight 72.3 kg (159 lb 6.4 oz) 08/15/2024 3:38 P M EDT Height 165.1 cm (5' 5 ) 01/08/2025 3:53 PM EDT Body Mass Index 28.24 08/15/2024 3:38 PM EDT Plan of Treatment Upcoming Encounters Date Type Department Care Team (Late st Contact Info) Description 02/15/2025 3:00 PM EDT Appointment Radiology Department - [address] [phone] 05/16/2025 3:45 PM EST Office Visit [facility] - [address] [phone] Fuentes Roy MD [address] [place] [address] Health Maintenance Due Date Last Done Comments [...] Results * Falls Risk Assessment (01/12/2024) Pathologist [facility] Falls Risk Assessment Abstracted Historical Provider HEALTH MAINTENANCE Final Result * Depression Screening (07/12/2023) Pathologist [facility] Depression Screening Abstracted [facility] Provider HEALTH MAINTENANCE Final Result * (ABNORMAL) Lipid panel (06/08/2022) Pathologist [facility] LDL/HDL Ratio 4 0 - 4 Triglycerides 233(A) 0 - 150 mg/dL Cholesterol 183 0 - 200 mg/dL HDL 48 >=40 mg/dL LDL Cholesterol 89 0 - 100 mg/dL Blood Venous blood specimen / Unknown Historical Provider LAB BLOOD ORDERABLES Yesica l Result [...] classified as having normal bone density. [facility] Department of Internal Medicine recommends using National [...] classified as having normal bone density. [facility] Department of Internal Medicine recommendsusing National Osteoporosis [...] of fracture risk by FRAX. Arianne MURRY [facility] DXA PROCEDURES Fin al Result from Last 3 Months or Most Recently Relevant to Health Maintenance Insurance MEDICARE [facility] [[email or web address]] Advance Directives Documents on File Type Date Recorded Patient Abstract Clerk Expl anation Health Care Decision (hx) 01/13/2022 AD HAMEED DIRECTIVE Health Care Decision (hx) 01/13/2022 AD HAMEED DIRECTIVE Health Care Decision (hx) 01/13/2022 AD HAMEED DIRECTIVE Care Teams Leasing Consultant Relationship Specialty Start Date End Date Fuentes Roy MD [address] [place] [id number] PCP - General 06/06/03
== END 2025-01-12 18:21 | disposition home or self-care (01) ==
LOC: HO.MRI 18:20
PROVIDERS: PCP Internal Medicine; Visit Provider Physician Assistant Medical
DX: G31.84 Mild cognitive impairment of uncertain or unknown etiology (principal); G30.0 Alzheimer's disease with early onset
CPT/HCPCS: 70553; A9585

== ENCOUNTER → 2025-01-12 18:30 | Outpatient (BNV) | payer MEDICARE, BC, SELFPAY | PROVIDERS: PCP Internal Medicine; Visit Provider Radiology Diagnostic Radiology | DX: G91.2 (Idiopathic) normal pressure hydrocephalus (principal); I67.82 Cerebral ischemia | CPT/HCPCS: 70553 ==

== ENCOUNTER 2025-04-05 15:17 | Outpatient (AMB) | payer MEDICARE, BC, SELFPAY ==
--- OUTSIDE RECORDS SUMMARY | 2024-03-13 03:30 | XMS_ITS ---
Author Organization [facility] Address [address] [place] [address] Care Team Providers Care Mandrel Maker Name Role Phone Fuentes Roy MD Primary Care Provider Unav Liana Carrillo Unavailable [phone] Allergies Allergen (clinical drug ingredient) Drug/Non Drug Allergy documented on EMR Reaction Allergy Type Onset Date Status Seasonale Unknown Drug Allergy Active Medications Medication SIG (Take, Route, Frequency, Duration) Notes Start Date End Date Status CeleXA Unknown Calcium 1500 MG 1 tablet with food O rally Twice a day; Duration: 30 day(s) Unknown AFO-fixed . 1 . Wear daily; Duration: . Unknown Levothyroxine Sodium Active Multivitamins Unknow n Pantoprazole Sodium Active Atorvastatin Calcium Active Citalopram Hydrobromide Active Vital Signs Height 5 ft 3 in in 03/13/2024 Weight 154 lbs 03/13/2024 BMI 27.28 kg/m2 03/13/2024 Encounters Encounter Location Date Provider Diagnosis [facility] [address] [place] [address] 03/13/2024 Liana Aviles Plan Of Treatment No Information Progress Notes * Maria A RIZO MDOB:[birth year] (84 yo F)Acc No.[id number]:03/13/2024 Progress Notes Patient: Maria A AMADOR Provider: Contreras Aviles DPM :1940 A ge:83 Y S ex:Female Date:03/13/2024 Address:[address], [id number] Pcp:Fuentes Roy MD Subjective: * Chief Complaints: * * Medical History: M easles, Back,Hip,and Knee pain, Depression, Thyroid disorder, Arthritis. * Surgical History: h and surgery , uterine suspension . * Medications: T aking Citalopram Hydrobromide , Taking Pantoprazole Sodium , Taking Atorvastatin Calcium , Taking Levothyroxine Sodium , Unknown CeleXA , Unknown Calcium 1500 MG Tablet 1 tablet with food Orally Twice a day , Unknown Multivitamins , Unknown AFO-fixed . Ankle-Foot Orthotic 1 . Wear daily * Allergies: S easonale. Objective: * Vitals: H t: 5 ft 3 in, Wt: 154, BMI: 27.28, Shoe size: 8.5, Ht-cm: 160.02 cm, Wt-k.85 kg. Assessment: Plan: * Treatment: * Images: * The named appointment provid er may or may not be the originator of this progress note, and it is not deemed complete until electronically signed by the appointment provider. Sign off status: Pending * Provider: Contreras Aviles DPM Date: 05/13/2023 Generated for Dewayne dejesus/Yaritza/Kristin on: 06/06/2024 09:31 PM EST
[2025-04-05 15:26] VITALS: BP 120/84; PULSE 73; O2SAT 96
--- NOTE | 2025-04-05 15:26 | A.OFFVIS_ITS ---
Vital Signs 04/05/25 15:26 Height 5 ft 3 in BP 120/84 Blood Pressure Location Rt brachial Position Sitting Pulse 73 Pulse Source Pulse Oximeter Pulse Oximetry (%) 96 Oxygen Delivery Method Room Air Intake Visit Reasons: 3 mnts f/u appt Consumer Credit Counselor Required: No Accompanied by: Self / Same As Patient Allergies No Known Allergies Allergy (Verified 01/04/25 11:14) HPI Comments Details: 84y/o female comes for follow up of cognitive decline. She is accompanied with her daughter Linnea and Farshad. Mar 14, 2025 at 3am she went to the bathroom and sat on the toilet, then had a syncopal event, EMT was called and she was not responsive upon arrival and became altered. After sternum rub, patient regained consciousness and brought to the [facility], BP was 180/90. She had a complete workup to r/o stroke. CTscan head w/o contrast findings: 1.no acute disease in the brain. 2. Mild ventricular prominence is again noted. CT angio head and neck no occlusion or hemodynamically significant stenosis involving the neck vasculature. Dominant r. vertebral arthery. Diminshed caliber of the entirety of the l. vertebral artery which function terminate w/in a PICA. MRI w/o contrast no actute infarct, mass, or intracranial hemorrhage. Severe chronic small vessels can be changed through out the supratentorial and pontine white matter with severe temporal predominant cerebral volume loss. Per daughter now she is engaging in conversation, her mood is positive, she remembers her chores. She is able to come up with the strategies for herself, without needing redirection and reminders for tasks. Her thought process has changed as she has services weekly with PT, home visiting nurse, OT, and speech. She exercised daily on her recumbent bike for 20min. She has difficulty with walking due to gait and balance issues. She can not get out of a chair, can't lift her feet due to foot drop and weakness, now uses the rolling walker daily and wheel chair for outings. She feels on her feet when going up or down the stairs. She leans over to the side, and holds on to the railings. Denies falls but is unsteady. Cognitive decline: She is unable to describe her memory issues. Stm is poor and can not formulate sentences, she has difficulty finding words per daughter and needs visual cues, multiple times a day. She requires assistance with all ADLs, showering, getting dressed, cooking and cleaning. Her daughter assigns her chores to help out with dinner and engages her in activities. She can not complete puzzles, she sleeps through the day and watches tv all night long with 2 bathroom breaks. Her mood is pleasant today, however she can be obstinate, yells and refuses do comply with requests like taking her medication on time. She takes melatonin as needed to help with insomnia, though it is ineffective. She tried Mirtazapine, however it was too strong for her.She denies headache, migraines, visual disturbances, n/v, dizziness and vertigo. Diet is good, she is selective about her food intake. [facility] Medical History Mild cognitive impairment Colonic polyp Post concussion syndrome Hiatal hernia Hyperlipidemia H pylori ulcer COPD (chronic obstructive pulmonary disease) Anxiety Depression Surgical History History of lumbosacral spine surgery Family History Father No problems noted. Mother No problems noted. Social History Household Members: Spouse Housing: House Alcohol intake: never Patient Tobacco Use Status: Never used Tobacco Physical Exam Vital Signs: Last Vital Signs Pulse 73 04/05/25 15:26 BP 120/84 04/05/25 15:26 Pulse Ox 96 04/05/25 15:26 Oxygen Delivery Method Room Air 04/05/25 15:26 Const General: cooperative, healthy appearing and anxious Nutritional Appearance: average body habitus Orientation/consciousness: oriented to person and oriented to place Eyes Pupils: Equal, round and reactive pupils present Resp Effort & Inspection: normal respiratory effort and able to speak in complete sentences Neuro Other: Follows directions really well on exam and engages in conversation. Sits in wheel chair. General: oriented to person, oriented to place, tone normal, moves all extremities and no focal motor deficits Cranial nerves: Yes Equal, round and reactive pupils present, Yes Normal facial strength present, Yes Midline tongue present, Yes Ability to bilaterally rotate head present and Yes Ability to bilaterally elevate shoulders present Cognition (Neuro): abnormal cognition Gait exam (Neuro): Antalgic gait present and Other gait observations present (wide based gait , antalgic, scoliosis ) Motor exam (neuro): 5/5 motor strength present throughout, Normal motor muscle tone present throughout and Other motor observations present (syed weakness of foot dorsiflexion) Deep tendon reflexes (DTR's): Right triceps reflex intensity grade: 2+, Left triceps reflex intensity grade: 2+, Rt Biceps (C5, C6): 2+, Left biceps reflex intensity grade: 2+, Right brachioradialis reflex intensity grade: 2+, Left brachioradialis reflex intensity grade: 2+, Right patellar reflex intensity grade: 2+ and Left patellar reflex intensity grade: 2+ Coordination: paecil-bm-[id number] test normal Psych Appearance: well kempt Mental Status: other Attitude: cooperative Insight: Limited insight present (Psych) Judgement: Limited judgement present (Psych) Results Reviewed Results Reviewed: Impression: [Enlargement of the ventricles could be secondary to parenchymal atrophy. Mild hydrocephalus, such as normal pressure hydrocephalus may also be considered. Confluent increased signal intensity is seen in the deep and periventricular white matter on the T2/FLAIR sequences is most commonly the sequela of chronic small-vessel ischemic disease and would be severe. There may be a component of transependymal flow of cerebral spinal fluid. Assessment & Plan Assessment & Plan (1) Insomnia: Code(s): G47.00 - Insomnia, unspecified Category: Medical Qualifiers: Insomnia type: primary Qualified Code(s): F51.01 - Primary insomnia (2) Dementia: Comment: pt is not interested in Leqembi or Kisunla therapy at this time. Code(s): F03.90 - Unspecified dementia, unspecified severity, without behavioral disturbance, psychotic disturbance, mood disturbance, and anxiety Category: Medical Qualifiers: Dementia type: Alzheimer's Dementia severity: mild Dementia behavioral or psychological symptom: with mood disturbance Qualified Code(s): G30.0 - Alzheimer's disease with early onset; F02.A3 - Dementia in other diseases classified elsewhere, mild, with mood disturbance (3) Mild cognitive impairment: Comment: vs early dementia, related to poorly controlled anxiety, hearing impairment Code(s): G31.84 - Mild cognitive impairment of uncertain or unknown etiology Category: Medical (4) Depression: Code(s): F32.A - Depression, unspecified Category: Medical Qualifiers: Depression Type: major depressive disorder Major depression recurrence: unspecified whether recurrent Active/Remission status: currently active Major depression episode severity: mild Qualified Code(s): F32.0 - Major depressive disorder, single episode, mild (5) Anxiety: Code(s): F41.9 - Anxiety disorder, unspecified Category: Medical Plan: sun downing? depression? Plan Dementia continue memantine 28mg po daily at bedtime with dinner. Speech and Hearing referral discussed various risk factors for dementia including hearing impairment, vision, and sense or smell, encouraged her to use hearing aids consistently, will referr to speech and hearing to assist. Depression continue citalopram 20mg PO qd for irritable mood. Insomnia continue melatonin 5mg po daily 3 hours prior to bedtime, for 2 weeks if melatonin, she could not tolerate mirtazapine. Sleep hygiene reviewed to regulate the circardian rhythm and sleep disturbances. MRI to evaluate for cerebral atrophy. Patient Education for college and career counselor burden, contact [facility] care services for assistance with home healthcare architect if needed. Liquid vitamins if not able to tolerate otc supplements, may put them in pudding, or yogurt. 3 month follow up Patient Instructions: Please complete the following fasting labs to rule out deficiencies. CBC/CMP/ B12/ Vit D/ TSH/ Homocysteine and MMA/ Ferritin. Sleep Hygiene provided: set a scheduled bedtime and wake time to help regulate the circadian rhythm and balance the release of pituitary hormones. Sleep in a dark room, temperatures below 68 degrees, and no devices n bed. Limit caffeinated products 6 hours prior to bed, and limit fluids 2-4 hours prior to bed. Gentle night yoga, diffusing essential oils, and playing soft music can be relaxing. 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
--- OUTSIDE RECORDS SUMMARY | 2025-04-05 21:31 | XMS_ITS ---
Author Organization [address] Address [address] [place] [address] Phone Care Team Providers Care Automotive Electrical Fitter Name Role Phone Fuentes Roy MD Primary Care Provider [phone] Transitional Care Management Status:Identified (Enrolling) Start date:03/15/2025 Enrollment reason:Identified using hospital discharge data Related social drivers of health:Food Access & Nutrition Case Team Name Relationship Phone Monalisa Mcclure LPN(Responsible Staff) Merchandise Flow Manager Continued Care and Services Coordination
--- OUTSIDE RECORDS SUMMARY | 2025-04-05 21:31 | XMS_ITS | Clinical Summary ---
Author Organization [facility] [address] [place] [address] [place] [phone] Phone Care Team Providers Care Spa Attendant Name Role Phone Fuentes Roy MD Primary Care Provider [phone] Allergies Active Allergy Reactions Criticality Noted Date Comments Other 03/04/2018 Seasonal Allergies Medications calcium carbonate/vitami n D3 (CALCIUM + D ORAL) OTC Active CYANOCOBALAMIN, VITAMIN B-12, ORAL Take by mouth daily. Active glucos sul 2KCl/msm/chond/C /Mn (GLUCOSAMINE CHONDROITIN ORAL) 1 daily Active vit C/E/Zn/coppr/lut ein/zeaxan (PRESERVISION AREDS-2 ORAL) OTC Active Vitamin C tablet Take 100 mg by mouth daily. Active biotin 1 mg tablet OTC Active cholecalciferol (VITAMIN D-3) 25 mcg (1,000 unit) tablet OTC Active citalopram (CeleXA) 10 mg tablet Take 2 tablets (20 mg total) by mouth 1 (one) time each day. Active fluticasone propionate (FLONASE) 50 mcg/actuation nasal spray Administer 2 sprays into each nostril 1 (one) time each day if needed for allergies. 5 Active memantine (NAMENDA XR) 28 mg extended release capsule Take 1 capsule (28 mg total) by mouth at bedtime. Neurologist Shauna Odonnell prescribed meds Active atorvastatin (LIPITOR) 10 mg tablet TAKE 1 TABLET BY MOUTH EVERY DAY 90 tablet 1 5 Active pantoprazole (PROTONIX) 40 mg EC tablet TAKE 1 TABLET BY MOUTH EVERY DAY DO NOT CRUSH, CHEW, OR SPLIT 90 tablet 1 5 Active Additional Information Patient not taking.Reported on 03/19/2025 levothyroxine (SYNTHROID, LEVOTHROID) 50 mcg tablet TAKE 1 TABLET BY MOUTH DAILY WEDNESDAY-WEDNESDAY & TAKE 2 TABLETS ON SUNDAYS. 102 tablet 1 5 Active Additional Information Patient taking differently: 50 mcg oral Every morning before breakfast, TAKE 1 TABLET BY MOUTH DAILY WEDNESDAY-WEDNESDAY & TAKE 2 TABLETS ON SUNDAYS., Reported on 03/14/2025 Active Problems Problem Noted Date Diagnosed Date TIA (transient ischemic attack) 03/14/2025 MCI (mild cognitive impairment) with memory loss 08/04/2022 Hiatal hernia 11/28/2018 Overview (04/10/2024): S/p EGD for epigastric pain Major depressive disorder, r ecurrent, in full remission with anxious distress ([facility] V24) 10/29/2016 Hypercholesterolemia 10/28/2015 Hypothyroidism 11/26/2014 Assessment & Plan (03/21/2025 8:38 AM EST): Allergic rhinitis 08/29/2011 Macular degeneration 06/24/2011 H. pylori infection 06/22/2011 Overview (04/10/2024): Treated by GI, stool antigen (-) 2010 COPD (chronic obstructive pu lmonary disease) ([facility] V24, [facility] V28) 01/13/2011 Overview (04/10/2024): Mild, well controlled with occasional Alb MDI prn Postconcussion syndrome 02/14/2010 Overview (04/10/2024): S/p fall, follows with neurology Colon polyps 04/02/2008 Overview (04/10/2024): Dr. Alexander, gastroenterology, note 08/07 in EMR Depression 07/16/2006 Assessment & Plan (03/21/2025 8:38 AM EST): Low back pain 07/16/2006 Overview (04/10/2024): mri 09/06: IMPRESSION: Spondylosis with relatively advanced facet arthropathy. Right posterior disc herniation at L5-S1. Right S1 nerve root displacement. Right S1 nerve root displacement and probable compression. Encounters Date Type Department Care Team Description 03/19/2025 10:00 AM EST Office Visit [address] [phone] Fuentes Roy MD Alzheimer's dementia of other onset, with anxiety, unspecified dementia severity (CMS/HCC V24, CMS/HCC V28) (Primary Dx); Depression, unspecified depression type; Hypothyroidism, unspecified type 03/16/[address] [phone] Fuentes Roy MD 03/14/2025 4:12 AM EST - 03/15/2025 2:48 PM EST Hospital Encounter [facility] [address] [place] [phone] Mario Bass MD Jones, Christopher, MD Flores, Carlos M, MD Alam, Aroosa, MD Acute alteration in mental status (Primary Dx); Hypoalbuminemia; Poorly-controlled hypertension; Pulmonary vascular congestion; Bilateral leg edema; TIA (transient ischemic attack) Discharge Disposition: Home-Health Care [facility] 02/15/2025 2:55 PM EDT - 02/15/2025 11:59 PM EDT Hospital Encounter Radiology Department - [address] [phone] Encounter for screening mammogram for breast cancer Discharge Disposition: Home or Self Care 01/08/2025 3:45 PM EDT Office Visit [address] [phone] Fuentes Roy MD Alzheimer's disease (CMS/HCC V24, CMS/HCC V28) (Primary Dx); Major depressive disorder, recurrent, in full remission with anxious distress (CMS/HCC V24); MCI (mild cognitive impairment) with memory loss; Chronic obstructive pulmonary disease, unspecified COPD type ([facility] V24, [facility] V28); Hypercholesterolemi a; Hypothyroidism, unspecified type; Depression, unspecified depression type from Last 3 Months Immunizations Immunization Administration Dates Next Due H1N1 Inj Preservative Free 06/06/2009 Influenza Quadravalent, 0.5m l (Fluzone High-dose) 65yo and older 01/22/2023,02/13/2022,01/20/2021,01/31 Influenza Quadrivalent, 0.5m l, preservative free (Fluarix; FluLaval; Fluzone) ages 6mo and older (Afluria) 3yo and older 01/03/2018 Influenza trivalent, 0.5mL ( Fluad) 65yo and older 02/15/2025,02/13/2022,01/20/2021,01/31,02/02/2019,01/28/2017,03/12/2016 Influenza trivalent, 0.5mL ( Fluzone High-dose) 65yo and older 02/08/2024,02/02/2019,01/28/2017,03/12 Influenza trivalent, 0.5mL, preservative free (Fluarix; FluLaval; Fluzone) ages 6mo and older (Afluria) 3 years and older 03/27/2015,03/15/2014,02/07/2013,02/02,01/13/2011,02/14/2010,01/18/2009 ,03/03/2008,05/04/2007,03/10/2005 Influenza trivalent, with pr eservative (Fluzone; Afluria) 6mo and older 03/27/2015,03/15/2014,02/07/2013,02/02,01/13/2011,02/14/2010,01/18/2009 ,03/03/2008,05/04/2007,03/10/2005 Influenza, Unspecified 02/02/2019,01/28/2017 Pfizer (ages 12 & older) Biv alent, COVID-19 02/13/2022 Pneumococcal conjugate 13 va lent (Prevnar 13, PCV13) 2mo and older 01/03/2018,03/27/2016 Pneumococcal polysaccharide 23 valent (Pneumovax 23) 2yo and older 12/21/2006 Tdap Tetanus diptheria acell ular pertussis (Boostrix; Adacel) 7yo and older 12/21/2006 Surgical History Surgery Date Site/Laterality Comments OTHER SURGICAL HISTORY PROCEDURE: MI UTERINE SUSPENSION W/WO SHORTENING LIGAMENTS SPX Medical [...] syndrome COPD (chronic obstructive pu lmonary disease) ([facility] V24, [facility] V28) 01/13/2011 DX:COPD (chronic o bstructive pulmonary disease) ([facility]) H. pylori infection 06/22/2011 DX:H. pylori infection Allergic rhinitis 08/29/2011 DX:Allergic rh initis Hypercholesterolemia 10/28/2015 DX:Hypercho lesterolemia Hiatal hernia 11/28/2018 DX:Hiatal hernia ; COMMENT: S/p EGD for epigastric pain Family History Medical History Relation Name Comments Other: thyroid disease Daughter Diabetes Father Heart attack Father at age 56 Breast cancer Other aunt-maternal Breast cancer Sister 40 Relation Name Status Comments Daughter Father Other aunt-maternal Sister 40 Alive Social History Tobacco Use Types Packs/Day Years Used Date Smoking Tobacco: Former Cigarettes Smokeless Tobacco: Never Tobacco Cessation:Counseling Given: Not Answered Alcohol Use Standard Drinks/Week Comments No 0 (1 standard drink = 0.6 oz pur e alcohol) Housing Instability Answer Date Recorde d Are you worried that in the next 2 months you may not have stable housing? No 03/14/2025 Food Access & Nutrition Answer Date Rec orded Do you have access to a vari ety of food including fruits and vegetables? No 03/14/2025 Health Literacy Answer Date Recorded How often do you need to hav e someone help you when you read instructions, pamphlets, or other written material from your doctor or pharmacy? Rarely 03/14/2025 Caregiver: How often do you need to have someone help you when you read instructions, pamphlets, or other written material from your doctor or pharmacy? Not on file 03/14/2025 Financial Risk Answer Date Recorded How hard is it for you to pa y for the very basics like food, housing, medical care, and air conditioning / heating? Patient declined 03/14/2025 Transportation Answer Date Recorded Has the lack of transportati on kept you from meetings, work, or from getting things needed for daily living? No Has the lack of transportati on kept you from medical appointments or from getting medications? No 03/14/2025 Social Isolation Answer Date Recorded How often do you feel lonely or isolated from th ose around you? Rarely 03/14/2025 Food Risk Answer Date Recorded Within the past 12 months we worried whether our food would run out before we got money to buy more. Never true 03/14/2025 Within the past 12 months th e food we bought just didn't last and we didn't have money to get more. Never true 03/14/2025 Dependent Care Answer Date Recorded Do you need help finding or paying for care for your loved ones. For example, child & adolescent psychiatrist or elderly care for an older adult? No 03/14/2025 Education Answer Date Recorded Do you think completing more education or training, like finishing a GED, going to college, or learning a trade, would be helpful for you? N/A 03/14/2025 Employment and Income Answer Date Recor ded During the last four weeks, have you been actively looking for work? No 03/14/2025 Living Situation Answer Date Recorded What is your living situation? Unrecognized valu e 03/14/2025 Interpersonal Safety Answer Date Record ed Physical Abuse Unrecognized value 03/14/2025 Verbal Abuse Unrecognized value 03/14/2025 Comments No Sex and Gender Information Value Date Recorded Sex Assigned at Not on file Legal Sex Female 5:23 PM EST Gender Identity Not on file Sexual Orientation Not on file Obstetrics History Para Term AB IAB SAB Ectopic Multiple Livin g Live Births 2 2 2 2 Date Outcome GA Total Labor Labor/2nd/3rd Weight Sex Type Anes PTL Aktiuska A1 A5 Name Clin Term Term Last Filed Vital Signs Vital Sign Reading Time Taken Comments Blood Pressure 102/58 03/19/2025 10:20 AM EST Pulse 76 03/19/2025 10:20 AM EST Temperature 36.4 C (97.5 F) 03/19/2025 10:20 AM EST Respiratory Rate 14 03/19/2025 10:20 AM EST Oxygen Saturation 96% 03/19/2025 10:20 AM EST Inhaled Oxygen Concentration - - Weight 70.8 kg (156 lb) 03/19/2025 10:20 AM EST Height 162.6 cm (5' 4 ) 03/19/2025 10:20 AM EST Body Mass Index 26.78 03/19/2025 10:20 AM EST Plan of Treatment Upcoming Encounters Date Type Department Care Team (Late st Contact Info) Description 05/16/2025 3:45 PM EST Office Visit Adult Medicine [facility] [address] [place] [phone] Fuentes Roy MD [address] [place] [address] Health Maintenance Due Date Last Done Comments Zoster Vaccines (1 of 2) 08/14/1991 RSV Immunization Adult Patients (1 - 1-dose 75+ series) 2016 DTaP,Tdap,and Td Vaccines (2 - Td or Tdap) 12/21/2016 12/21/2006 Colorectal Cancer Screening: Stool Based Tests (FOBT/FIT) 04/11/2022 Depression Screening 05/03/2024 07/12/2023 Medicare Annual Wellness Visit 07/11/2024 07/12/2023 COVID-19 Vaccine ( season) 2025 02/15/2025, 02/08/2024, 01/22/2023, Additional history exists Social Influencers of Health Screening 03/14/2026 03/14/2025 Falls Risk Assessment 03/15/2026 03/15/2025, 024 Hypertension/CHF/CAD Annual BMP Blood Test 03/15/2026 03/15/2025, 03/14/2025, 03/14/2025, Additional history exists Osteoporosis Screening (Bone Density Screening) 01/05/2027 01/05/2017 Cholesterol Screening (Lipid Panel) 03/14/2030 03/14/2025, 06/08/2022 Pneumococcal Vaccine: 50+ Years Completed 01/03/2018, 03/27/2016, 12/21/2006 Influenza Vaccine Completed 02/15/2025, , 01/22/2023, Additional history exists HIB Vaccines Aged Out No longer eligi [...] Procedure Name Priority Date/Time Associated Diagnosis Comments COMPREHENSIVE METABOLIC PANEL Routine 03/15/2025 6:14 AM EST COMPLETE BLOOD COUNT Routine 03/15/2025 6:14 AM EST TRANSTHORACIC ECHOCARDIOGRAM (TTE) COMPLETE W/ CONTRAST Routine 03/14/2025 11:55 AM EST Pulmonary vascular congestion Bilateral leg edema MR BRAIN WO CONTRAST Routine 03/14/2025 10:36 AM EST OXYGEN THERAPY, ADULT Routine 03/14/2025 8:01 AM EST CBC WITH AUTO DIFFERENTIAL Routine 03/14/2025 7:15 AM EST AMMONIA Routine 03/14/2025 7:15 AM EST LIPID PANEL WITH REFLEX TO DIRECT LDL Routine 03/14/2025 7:15 AM EST HEMOGLOBIN A1C Routine 03/14/2025 7:15 AM EST CBC AND DIFFERENTIAL Routine 03/14/2025 7:15 AM EST BASIC METABOLIC PANEL Routine 03/14/2025 7:15 AM EST OXYGEN THERAPY, ADULT Routine 03/14/2025 6:00 AM EST OXYGEN THERAPY, ADULT Routine 03/14/2025 6:00 AM EST OXYGEN THERAPY, ADULT Routine 03/14/2025 6:00 AM EST DRUG ABUSE SCREEN 8A PANEL, URINE STAT 03/14/2025 4:50 AM EST HANNAH URINE CULTURE TUBE STAT 03/14/2025 4:50 AM EST URINALYSIS WITH REFLEX MICROSCOPIC AND CULTURE STAT 03/14/2025 4:50 AM EST URINALYSIS WITH REFLEX MICROSCOPIC AND CULTURE STAT 03/14/2025 4:50 AM EST RHYTHM ECG, REPORT Routine 03/14/2025 4: 42 AM EST ECG 12-LEAD STAT 03/14/2025 4:37 AM EST CBC WITH AUTO DIFFERENTIAL STAT 03/14/2025 4:33 AM EST CBC AND DIFFERENTIAL STAT 03/14/2025 4:33 AM EST RESPIRATORY VIRUS PANEL MOLECULAR STUDY STAT 03/14/2025 4:33 AM EST THYROID STIMULATING HORMONE WITH REFLEX TO FREE T4 AND FREE T3 Add-On 03/14/2025 4:32 AM EST PROTHROMBIN TIME WITH INR STAT 03/14/2025 4:32 AM EST MAGNESIUM STAT 03/14/2025 4:32 AM EST COMPREHENSIVE METABOLIC PANEL STAT 03/14/2025 4:32 AM EST B-TYPE NATRIURETIC PEPTIDE STAT 03/14/2025 4:32 AM EST ETHANOL STAT 03/14/2025 4:32 AM EST TROPONIN I HIGH SENSITIVITY STAT 03/14/2025 4:32 AM EST XR CHEST 1 VIEW STAT 03/14/2025 4:[address] ANGIO HEAD/NECK STROKE WO AND/OR W CONTRAST STAT 03/14/2025 4:[address] HEAD STROKE WO CONTRAST STAT 03/14/2025 4:30 AM EST POCT GLUCOSE BLOOD Routine 03/14/2025 4: 27 AM EST MI CRITICAL CARE 30-74 MINUTES Routine 03/14/2025 4:13 AM EST MG MAMMO DIGITAL SCREENING W CLYDE BILAT Routine 02/15/2025 3:14 PM EDT Encounter for screening mammogram for breast cancer EXTERNAL MRI REPORT 01/12/2025 EXTERNAL MRI REPORT 01/12/2025 FALLS RISK ASSESSMENT Routine 01/12/2024 DEPRESSION SCREENING Routine 07/12/2023 DXA BONE DENSITY STUDY 1+ SITS AXIAL SKEL Routine 01/05/2017 4:09 PM EDT Pain in right hip Pain in left hip Other specified disorders of bone density and structure, unspecified site from Last 3 Months or Most Recently Relevant to Health Maintenance Results * (ABNORMAL) Complete blood count (03/15/2025 6:14 AM EST) WBC 7.3 4.8 - 10.8 K/[facility] LAB HEMETOLOGY METHOD 03/15/2025 7:19 AM [facility] RBC 4.60 3.80 - 4.80 M/mcL LAB HEMETOLOGY METHOD 03/15/2025 7:19 AM [facility] Hemoglobin 14.0 11.5 - 16.0 g/dL LAB HEMETOLOGY METHOD 03/15/2025 7:19 AM [facility] Hematocrit 42.6 35.0 - 47.0 % LAB HEMETOLOGY METHOD 03/15/2025 7:19 AM [facility] MCV 93.2 79.0 - 98.0 FL LAB HEMETOLOGY METHOD 03/15/2025 7:19 AM [facility] MCH 30.6 27.0 - 32.0 pcg LAB HEMETOLOGY METHOD 03/15/2025 7:19 AM [facility] MCHC 32.9 32.0 - 37.0 g/dL LAB HEMETOLOGY METHOD 03/15/2025 7:19 AM [facility] RDW 14.1 11.0 - 15.0 % LAB HEMETOLOGY METHOD 03/15/2025 7:19 AM [facility] Platelets 189 130 - 400 K/mcL LAB HEMETOLOGY METHOD 03/15/2025 7:19 AM [facility] MPV 11.2(H) 7.0 - 11.0 FL LAB HEMETOLOGY METHOD 03/15/2025 7:19 AM [facility] NRBC 0.0 <1.0 % LAB HEMETOLOGY METHOD 03/15/2025 7:19 AM [facility] NRBC Absolute 0.00 <0.10 K/mcL LAB HEMETOLOGY METHOD 03/15/2025 7:19 AM [facility] Blood Venous blood specimen / Unknown Venipuncture / Unknown 03/15/2025 6:14 AM EST 03/15/2025 7:05 AM EST us Kassandra DREW LAB BLOOD ORDERABLES Final Resul t [facility] [address] [place] [address], [place] [phone] * (ABNORMAL) Comprehensive metabolic panel (03/15/2025 6:14 AM EST) Only the most recent of2 resultswithin the time period is included. Sodium 140 133 - 145 mmol/L LAB CHEMISTRY METHOD 03/15/2025 8:14 AM [facility] Potassium 3.8 3.5 - 5.5 mmol/L LAB CHEMISTRY METHOD 03/15/2025 8:14 AM [facility] Chloride 106 96 - 110 mmol/L LAB CHEMISTRY METHOD 03/15/2025 8:14 AM [facility] CO2 29 21 - 32 mmol/L LAB CHEMISTRY METHOD 03/15/2025 8:14 AM [facility] Anion Gap 5 3 - 11 LAB CHEMISTRY METHOD 03/15/2025 8:14 AM [facility] Glucose 93 70 - 100 mg/dL LAB CHEMISTRY METHOD 03/15/2025 8:14 AM [facility] BUN 19 5 - 25 mg/dL LAB CHEMISTRY METHOD 03/15/2025 8:14 AM [facility] Creatinine 0.88 0.50 - 1.10 mg/dL LAB CHEMISTRY METHOD 03/15/2025 8:14 AM [facility] eGFR 65 >=60 mL/min/1. 73m2 LAB CHEMISTRY METHOD 03/15/2025 8:14 AM [facility] Comment:Calculation based on the Chronic Kidney Disease Epidemiology Collaboration (CKD-EPI) equation refit without adjustment for race. BUN/Creatinine Ratio 21.6 LAB CHEMISTRY METHOD 03/15/2025 8:14 AM [facility] Calcium 9.3 8.5 - 10.5 mg/dL LAB CHEMISTRY METHOD 03/15/2025 8:14 AM [facility] AST (SGOT) 30 10 - 42 unit/L LAB CHEMISTRY METHOD 03/15/2025 8:14 AM [facility] ALT (SGPT) 36 10 - 60 unit/L LAB CHEMISTRY METHOD 03/15/2025 8:14 AM [facility] Alkaline Phosphatase 71 42 - 121 unit/L LAB CHEMISTRY METHOD 03/15/2025 8:14 AM [facility] Total Protein 6.6 6.0 - 8.0 g/dL LAB CHEMISTRY METHOD 03/15/2025 8:14 AM [facility] Albumin 3.1(L) 3.2 - 5.0 g/dL LAB CHEMISTRY METHOD 03/15/2025 8:14 AM [facility] Total Bilirubin 0.7 0.0 - 1.4 mg/dL LAB CHEMISTRY METHOD 03/15/2025 8:14 AM [facility] Comment:Results verified by repeat testing Blood Venous blood specimen / Unknown Venipuncture / Unknown 03/15/2025 6:14 AM EST 03/15/2025 7:05 AM EST us Kassandra DREW LAB BLOOD ORDERABLES Final Resul t [facility] [address] [place] [address], * (ABNORMAL) TRANSTHORACIC ECHOCARDIOGRAM (TTE) COMPLETE W/ CONTRAST (03/14/2025 11:55 AM EST) Left Atrium Minor [place] 5.5 cm CV PACS Left Atrium Major [place] 5.7 cm CV PACS LA Area Sys (A2C) 13 cm2 CV PACS LA Area Sys (A4C) 15 cm2 CV PACS LA Volume (BP) 29 mL CV PACS RA Area 17.0 cm2 CV PACS RA 2D Volume 44 mL CV PACS AV Mean Gradient 3 mmHg CV PACS Ao VTI 22.3 cm CV PACS AV Peak [place] 1.3 m/s CV PACS AV Peak Gradient 6 mmHg CV PACS AV Area Continuity Equation 1.8 cm2 CV PACS AV Area Peak Velocity 1.7 cm2 CV PACS Aortic Sinus Valsalva 3.1 cm CV PACS Ascending Aorta 3.4 cm CV PACS IVC Proximal 1.8 cm CV PACS IVSD 0.9 0.6 - 0.9 cm CV PACS LVIDD 4.1 3.8 - 5.2 cm CV PACS LVIDS 2.2 2.2 - 3.5 cm CV PACS LVOT Diameter 1.8 cm CV PACS LVOT Mean [place] 0.5 m/s CV PACS LVOT Mean Grad 1 mmHg CV PACS LVOT Peak VTI 16.2 cm CV PACS LVOT Peak [place] 0.8 m/s CV PACS LVOT Peak Gradient 3 mmHg CV PACS LVPWD 0.9 0.6 - 0.9 cm CV PACS MV E' Tissue Velocity Lateral 8 cm/s CV PACS MV E' Tissue Velocity Septal 4 cm/s CV PACS LVOT Area 2.5 cm2 CV PACS LVOT Stroke Volume 41 mL CV PACS MV Deceleration [place] 1.8 m/s2 CV PACS E Wave Deceleration Time 317(A) 119 - 242 ms CV PACS MV PHT 93 ms CV PACS MV Peak A Chapin 0.81 m/s CV PACS MV Peak E [place] 0.56 m/s CV PACS MV Area PHT 2.4 cm2 CV PACS PV Acceleration Time 169 ms CV PACS PV Acceleration Time 169 ms CV PACS RV Diastolic Basal Dimension 3.2 2.5 - 4.1 cm CV PACS RV S' 16 cm/s CV PACS TAPSE 20 mm CV PACS E/E' Ratio Septal 14 CV PACS E/E' Ratio Averaged 11 CV PACS LVOT Stroke Index 22 mL/m2 CV PACS Relative Wall Thickness ratio 0.44 CV PACS LVOT:AV VTI Index 0.73 CV PACS FS 46 % CV PACS LV Mass 2D 114 g CV PACS Ascending Aorta Index 1.82 cm/m2 CV PACS LVOT flow 127 mL/s CV PACS RA 2D Volume Index 24 mL/m2 CV PACS ROXANNE Index (VTI) 0.99 cm2/m2 CV PACS ROXANNE Index (Pk Chap[place]) 0.91 cm2/m2 CV PACS LVIDD Index 2.19 cm/m2 CV PACS LVIDS Index 1.18 cm/m2 CV PACS AV Velocity Ratio 0.62 CV PACS E/A Ratio 0.7 CV PACS E/E' Ratio Lateral 7 CV PACS LA Volume Index (BP) 16 mL/m2 CV PACS LV Mass Index 2D 61 g/m2 CV PACS BSA 1.91 m2 CV PACS Est. RA Pressure 8 mmHg CV PACS Anatomical Region Laterality Modality Ultrasound Narrative 03/14/2025 3:11 PM EST Left ventricle cavity size is normal. Wall thickness is at upper limits of normal. Systolic function is normal with an ejection fraction of 55-60%. There are no regional LV wall motion abnormalities No hemodynamically significant valvular dysfunction There is no prior study available for comparison Left Ventricle Left ventricle cavity size is normal. Wall thickness is at upper limits of normal. Systolic function is normal with an ejection fraction of 55-60%. There are no regional LV wall motion abnormalities. E-A reversal consistent with mild diasolic relaxation abnormality. Right Ventricle Right ventricle cavity appears normal. Systolic function is normal. Left Atrium Left atrium cavity size is normal. Right Atrium Right atrium cavity is normal. IVC/SVC RA pressures is estimated to be 8 mmHg (IVC diameter <21 mm and decreases <50% during inspiration). Mitral Valve The leaflets are mildly thickened. There is annular calcification. There is trace regurgitation. There is no evidence of mitral valve stenosis. Tricuspid Valve Tricuspid valve structure is normal. Tricuspid regurgitation is inadequate for estimation of right ventricular systolic pressure. There is no evidence of tricuspid valve stenosis. Aortic Valve The aortic valve is trileaflet. There is no regurgitation or stenosis. Pulmonic Valve Pulmonic valve structure is normal. There is trace pulmonic valve regurgitation. There is no evidence of pulmonic valve stenosis. Ascending Aorta The aorta appears normal in size. Transverse aorta not well visualized. Pericardium There is an anterior fat pad. There is no pericardial effusion. Study Details Overall the study quality was technically difficult. Definity contrast was given to enhance imaging. Study was difficult due to: procedure performed with the patient in a supine position. Dio Garcia MD CV ECHO PROCEDURES Final Resu lt * MR Brain wo Contrast (03/14/2025 10:36 AM EST) Anatomical Region Laterality Modality Head and Neck Magnetic Resonan ce 03/14/2025 10:5 3 AM EST Impressions 03/14/2025 11:06 AM EST No acute infarct, mass, or intracranial hemorrhage. Severe chronic small vessels can be changed throughout the supratentorial and pontine white matter with severe temporal predominant cerebral volume loss. -------- FINAL REPORT -------- Dictated By: ULICES LOU Dictated Date: 03/14/2025 10:53 ET Assigned Physician: ULICES LOU Reviewed and Electronically Signed By: ULICES LOU Signed Date: 03/14/2025 11:06 ET Workstation ID: [id number] Transcribed By: Self Edit Transcribed Date: 03/14/2025 10:53 ET Narrative 03/14/2025 11:06 AM EST PROCEDURE: Brain MRI INDICATION: Pain, stroke TECHNIQUE: Multiplanar, multisequence MRI of the brain Without contrast. COMPARISON: CT and CTA 03/14/2025 FINDINGS: No acute infarct, mass effect, or intracranial hemorrhage. Severe chronic small vessel ischemic change seen throughout the supratentorial and pontine white matter. Severe diffuse cerebral volume loss with prominence of the ventricles, sulci, and cisterns. Volume loss is more pronounced in the temporal lobes. No hydrocephalus. 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 Sella and foramen magnum are within normal limits. Major intracranial arterial flow voids are within normal limits. Intracranial arterial vasculature is better assessed on recent CTA. Orbits and extra cranial soft tissues are normal. Sinuses and mastoid air cells are clear. Calvarium is normal. Procedure Note Ulices Lou MD - 03/14/2025 PROCEDURE: Brain MRI INDICATION: Pain, stroke TECHNIQUE: Multiplanar, multisequence MRI of the brain Without contrast. COMPARISON: CT and CTA 03/14/2025 FINDINGS: No acute infarct, mass effect, or intracranial hemorrhage. Severe chronic small vessel ischemic change seen throughout thesupratentorial and pontine white matter. Severe diffuse cerebral volume loss with prominence of the ventricles,sulci, and cisterns. Volume loss is more pronounced in the temporallobes. No hydrocephalus. Several small old infarcts are noted throughout the basal ganglia andcerebellum. Sella and foramen magnum are within normal limits. Major intracranial arterial flow voids are within normal limits.Intracranial arterial vasculature is better assessed on recent CTA. Orbits and extra cranial soft tissues are normal. Sinuses and mastoid air cells are clear. Calvarium is normal. IMPRESSION: No acute infarct, mass, or intracranial hemorrhage. Severe chronic small vessels can be changed throughout the supratentorialand pontine white matter with severe temporal predominant cerebral volumeloss. -------- FINAL REPORT -------- Dictated By: ULICES LOU Dictated Date: 03/14/2025 10:53 ET Assigned Physician: ULICES LOU Reviewed and Electronically Signed By: ULICES LOU Signed Date: 03/14/2025 11:06 ET Workstation ID: [id number] Transcribed By: Self Edit Transcribed Date: 03/14/2025 10:53 ET us Juan Carlos Heard MD IM MRI PROCEDURES Final Re sult * (ABNORMAL) Lipid panel with reflex to direct LDL (03/14/2025 7:15 AM EST) Cholesterol 184 0 - 200 mg/dL LAB CHEMISTRY METHOD 03/14/2025 8:16 AM EST [facility] Triglycerides 206(H) 0 - 150 mg/dL LAB CHEMISTRY METHOD 03/14/2025 8:16 AM EST [facility] HDL 42 >=40 mg/dL LAB CHEMISTRY METHOD 03/14/2025 8:16 AM EST [facility] LDL Calculated 101(H) 0 - 100 mg/dL LAB CHEMISTRY METHOD 03/14/2025 8:16 AM [facility] Comment:Estimated LDL Calcul ated using equation: Total cholesterol - HDL cholesterol - (Triglycerides/5) VLDL Cholesterol Justino 41.2 mg/dL LAB CHEMISTRY METHOD 03/14/2025 8:16 AM EST [facility] Non HDL Chol. (LDL+VLDL) 142 <145 mg/dL LAB CHEMISTRY METHOD 03/14/2025 8:16 AM [facility] Chol/HDL Ratio 4.4 0.0 - 4.4 LAB CHEMISTRY METHOD 03/14/2025 8:16 AM [facility] Blood Venous blood specimen / Unknown Venipuncture / Unknown 03/14/2025 7:15 AM EST 03/14/2025 7:25 AM EST us Juan Carlos Heard MD LAB BLOOD ORDERABLES Final Result [facility] [address] [place] [address], * CBC auto differential (03/14/2025 7:15 AM EST) Only the most recent of2 resultswithin the time period is included. WBC 6.6 4.8 - 10.8 K/mcL LAB HEMETOLOGY METHOD 03/14/2025 7:35 AM [facility] RBC 4.60 3.80 - 4.80 M/mcL LAB HEMETOLOGY METHOD 03/14/2025 7:35 AM [facility] Hemoglobin 14.5 11.5 - 16.0 g/dL LAB HEMETOLOGY METHOD 03/14/2025 7:35 AM [facility] Hematocrit 42.9 35.0 - 47.0 % LAB HEMETOLOGY METHOD 03/14/2025 7:35 AM [facility] MCV 92.5 79.0 - 98.0 FL LAB HEMETOLOGY METHOD 03/14/2025 7:35 AM [facility] MCH 31.3 27.0 - 32.0 pcg LAB HEMETOLOGY METHOD 03/14/2025 7:35 AM [facility] MCHC 33.8 32.0 - 37.0 g/dL LAB HEMETOLOGY METHOD 03/14/2025 7:35 AM [facility] RDW 13.9 11.0 - 15.0 % LAB HEMETOLOGY METHOD 03/14/2025 7:35 AM [facility] Platelets 191 130 - 400 K/mcL LAB HEMETOLOGY METHOD 03/14/2025 7:35 AM [facility] MPV 10.9 7.0 - 11.0 FL LAB HEMETOLOGY METHOD 03/14/2025 7:35 AM [facility] NRBC 0.0 <1.0 % LAB HEMETOLOGY METHOD 03/14/2025 7:35 AM [facility] NRBC Absolute 0.00 <0.10 K/mcL LAB HEMETOLOGY METHOD 03/14/2025 7:35 AM [facility] Neutrophils Relative 55.3 % LAB HEMETOLOGY METHOD 03/14/2025 7:35 AM [facility] Lymphocytes Relative 33.6 % LAB HEMETOLOGY METHOD 03/14/2025 7:35 AM [facility] Monocytes Relative 7.7 % LAB HEMETOLOGY METHOD 03/14/2025 7:35 AM [facility] Eosinophils Relative 2.0 % LAB HEMETOLOGY METHOD 03/14/2025 7:35 AM [facility] Basophils Relative 1.1 % LAB HEMETOLOGY METHOD 03/14/2025 7:35 AM [facility] Immature Granulocytes Relative 0.3 % LAB HEMETOLOGY METHOD 03/14/2025 7:35 AM [facility] Neutrophils Absolute 3.65 1.50 - 7.00 K/mcL LAB HEMETOLOGY METHOD 03/14/2025 7:35 AM [facility] Lymphocytes Absolute 2.22 1.00 - 5.00 K/mcL LAB HEMETOLOGY METHOD 03/14/2025 7:35 AM EST [facility] Monocytes Absolute 0.51 0.20 - 1.00 K/mcL LAB HEMETOLOGY METHOD 03/14/2025 7:35 AM EST [facility] Eosinophils Absolute 0.13 0.00 - 0.50 K/mcL LAB HEMETOLOGY METHOD 03/14/2025 7:35 AM EST [facility] Basophils Absolute 0.07 0.00 - 0.20 K/[facility] LAB HEMETOLOGY METHOD 03/14/2025 7:35 AM EST [facility] Immature Granulocytes Absolute 0.02 0.00 - 0.03 K/[facility] LAB HEMETOLOGY METHOD 03/14/2025 7:35 AM EST [facility] Blood Venous blood specimen / Unknown Venipuncture / Unknown 03/14/2025 7:15 AM EST 03/14/2025 7:25 AM EST Juan Carlos Heard MD LAB BLOOD ORDERABLES Final Result [facility] [address] [place] [address], [place] [phone] * Hemoglobin A1c (03/14/2025 7:15 AM EST) Hemoglobin A1C 5.7 <6.5 % LAB CHEMISTRY METHOD 03/14/2025 1:33 PM EST [facility] Mean Bld Glu Estim. 117 mg/dL LAB CHEMISTRY METHOD 03/14/2025 1:33 PM EST [facility] Blood Venous blood specimen / Unknown Venipuncture / Unknown 03/14/2025 7:15 AM EST 03/14/2025 7:25 AM EST us Juan Carlos Heard MD LAB BLOOD ORDERABLES Final Result [facility] [address] [place] [address], [place] [phone] * Ammonia (03/14/2025 7:15 AM EST) Ammonia 31 11 - 35 mcmol/L LAB CHEMISTRY METHOD 03/14/2025 7:50 AM [facility] Blood Venous blood specimen / Unknown Venipuncture / Unknown 03/14/2025 7:15 AM EST 03/14/2025 7:26 AM EST us Juan Carlos Heard MD LAB BLOOD ORDERABLES Final Result [facility] [address] [place] [address], * (ABNORMAL) Basic metabolic panel (03/14/2025 7:15 AM EST) Pathologist [facility] Sodium 139 133 - 145 mmol/L LAB CHEMISTRY METHOD 03/14/2025 8:14 AM [facility] Potassium 4.4 3.5 - 5.5 mmol/L LAB CHEMISTRY METHOD 03/14/2025 8:14 AM [facility] Chloride 107 96 - 110 mmol/L LAB CHEMISTRY METHOD 03/14/2025 8:14 AM [facility] CO2 26 21 - 32 mmol/L LAB CHEMISTRY METHOD 03/14/2025 8:14 AM [facility] Anion Gap 6 3 - 11 LAB CHEMISTRY METHOD 03/14/2025 8:14 AM [facility] Glucose 104(H) 70 - 100 mg/dL LAB CHEMISTRY METHOD 03/14/2025 8:14 AM [facility] BUN 19 5 - 25 mg/dL LAB CHEMISTRY METHOD 03/14/2025 8:14 AM [facility] Creatinine 0.72 0.50 - 1.10 mg/dL LAB CHEMISTRY METHOD 03/14/2025 8:14 AM [facility] eGFR 83 >=60 mL/min/1. 73m2 LAB CHEMISTRY METHOD 03/14/2025 8:14 AM [facility] Comment:Calculation based on the Chronic Kidney Disease Epidemiology Collaboration (CKD-EPI) equation refit without adjustment for race. BUN/Creatinine Ratio 26.4 LAB CHEMISTRY METHOD 03/14/2025 8:14 AM [facility] Calcium 9.3 8.5 - 10.5 mg/dL LAB CHEMISTRY METHOD 03/14/2025 8:14 AM [facility] Blood Venous blood specimen / Unknown Venipuncture / Unknown 03/14/2025 7:15 AM EST 03/14/2025 7:25 AM EST us Juan Carlos Heard MD LAB BLOOD ORDERABLES Final Result [facility] [address] [place] [address], * (ABNORMAL) Urinalysis with reflex microscopic and culture (03/14/2025 4:50 AM EST) Specific [place] Urine 1.043(H) 1.003 - 1.030 LAB URINALYSIS - AUTOMATED METHOD 03/14/2025 5:17 AM [facility] pH, Urine 7.0 5.0 - 8.0 pH LAB URINALYSIS - AUTOMATED METHOD 03/14/2025 5:17 AM [facility] Leukocytes, Urine Negative Negative LAB URINALYSIS - AUTOMATED METHOD 03/14/2025 5:17 AM [facility] Nitrite, Urine Negative Negative LAB URINALYSIS - AUTOMATED METHOD 03/14/2025 5:17 AM [facility] Protein, Urine Negative <=Trace mg/dL LAB URINALYSIS - AUTOMATED METHOD 03/14/2025 5:17 AM [facility] Glucose, Urine Negative Negative mg/dL LAB URINALYSIS - AUTOMATED METHOD 03/14/2025 5:17 AM [facility] Ketones, Urine Negative Negative mg/dL LAB URINALYSIS - AUTOMATED METHOD 03/14/2025 5:17 AM EST [facility] Urobilinogen, Urine 0.2 0.2 - 1.0 mg/dL LAB URINALYSIS - AUTOMATED METHOD 03/14/2025 5:17 AM [facility] Bilirubin, Urine Negative Negative LAB URINALYSIS - AUTOMATED METHOD 03/14/2025 5:17 AM EST [facility] Blood, Urine Negative Negative LAB URINALYSIS - AUTOMATED METHOD 03/14/2025 5:17 AM [facility] Urine Urinary bladder structure / Unknown Non-blood Collection / Unknown 03/14/2025 4:50 AM EST 03/14/2025 5:08 AM EST us Mario Bass MD LAB URINE ORDERABLES Final Res ult Performing Organization Address City/[facility]/ZIP Co de Phone Number [facility] [address] [place] [address], [place] [phone] * Hannah urine culture tube (03/14/2025 4:50 AM EST) Extra Tube Hold for add-ons. 03/14/2025 7:01 AM EST [facility] Comment:Auto resulted. Urine Urinary bladder structure / Unknown Non-blood Collection / Unknown 03/14/2025 4:50 AM EST 03/14/2025 5:08 AM EST us Mario Bass MD LAB URINE ORDERABLES Final Res ult [facility] [address] [place] [address], [place] [phone] * Drug abuse screen 8a panel, urine (03/14/2025 4:50 AM EST) Amphetamine Screen, Ur Negative Negative LAB CHEMISTRY METHOD 03/14/2025 5:38 AM [facility] Comment:Certain OTC medicati ons containing ephedrine, phenylephrine, pseudoephedrine and phenylpropanolamine can cause false positive results. Barbiturate Screen, Ur Negative Negative LAB CHEMISTRY METHOD 03/14/2025 5:38 AM EST [facility] Benzodiazepine Screen, Ur Negative Negative LAB CHEMISTRY METHOD 03/14/2025 5:38 AM EST [facility] Cocaine Screen, Ur Negative Negative LAB CHEMISTRY METHOD 03/14/2025 5:38 AM [facility] Opiate Screen, Ur Negative Negative LAB CHEMISTRY METHOD 03/14/2025 5:38 AM [facility] Cannabinoid (THC) Screen, Ur Negative Negative LAB CHEMISTRY METHOD 03/14/2025 5:38 AM [facility] Comment:Specimens from patie nts taking pantoprazole sodium (Protonix) have been shown to produce false positive results. Oxycodone Screen, Ur Negative Negative LAB CHEMISTRY METHOD 03/14/2025 5:38 AM [facility] Fentanyl, Ur Negative Negative LAB CHEMISTRY METHOD 03/14/2025 5:38 AM [facility] Urine Urine specimen obtained by clean catch procedure / Unknown Non-blood Collection / Unknown 03/14/2025 4:50 AM EST 03/14/2025 5:08 AM EST [facility] - 03/14/2025 5:38 AM EST Assay cutoffs: Amphetamines 1000 ng/mL Barbiturates 200 ng/mL Benzodiazepines 200 ng/mL Cocaine 300 ng/mL Fentanyl 1 ng/mL Opiates 300 ng/mL Oxycodone 100 ng/mL THC 50 ng/mL Semi-quantitative assay for screening purposes only. Unconfirmed screening result should not be used for non-medical purposes. *ALTERNATE METHOD CONFIRMATION DONE UPON REQUEST ONLY* Mario Bass MD LAB URINE ORDERABLES Final Res ult [facility]) [facility] [address] [place] [address], * RHYTHM ECG, REPORT (03/14/2025 4:42 AM EST) Narrative Mario Bass MD - 03/14/2025 4:42 AM EST Mario Bass MD 03/14/2025 7:56 PM ECG Rhythm Interpretation and Report Date/Time: 03/14/2025 4:42 AM Performed by: Mario Bass MD Authorized by: Mario Bass MD ECG interpreted by ED Physician in the absence of a outsole skiver: yes Previous ECG: Previous ECG: Compared to current Similarity: No change Interpretation: Interpretation: non-specific Quality: Tracing quality: Limited by artifact Rate: ECG rate assessment: normal Rhythm: Rhythm: sinus rhythm Ectopy: Ectopy: none QRS: QRS axis: Normal Comments: EKG shows sinus rhythm at [address] changes, no T wave inversions, normal axis, poor R wave progression, not significantly changed compared with EKG from 06/07/2023, independently reviewed and interpreted contemporaneously by me as an abnormal but nonischemic EKG. Mario Bass MD ECG ORDERABLES Final Result * ECG 12 lead (03/14/2025 4:37 AM EST) Ventricular Rate ECG 72 BPM GEMUSE Atrial Rate 72 BPM GEMUSE P-R Interval 144 ms GEMUSE QRS Duration 82 ms GEMUSE Q-T Interval 420 ms GEMUSE QTc 459 ms GEMUSE P Wave [place] 43 degrees GEMUSE R [place] 19 degrees GEMUSE T [place] 54 degrees GEMUSE ECG Interpretation Normal sinus rhythm Cannot rule out Anterior infarct (cited on or before 07-JUN-2023) Abnormal ECG When compared with ECG of 07-JUN-2023 16:51, No significant change was found Confirmed by CARLEE VALDIVIA ([id number]) on 03/14/2025 10:11:15 PM GEMUSE 03/14/2025 4:37 AM EST 03/14/2025 10:11 PM EST Mario Bass MD ECG ORDERABLES Final Result GEMUSE * Respiratory virus panel molecular study (03/14/2025 4:33 AM EST) Pathologist [facility] Adenovirus Detection by PCR Not Detected Not Detected LAB MICROBIOLOGY METHOD 03/14/2025 5:53 AM [facility] Influenza A PCR Not Detected Not Detected LAB MICROBIOLOGY METHOD 03/14/2025 5:53 AM [facility] Influenza B PCR Not Detected Not Detected LAB MICROBIOLOGY METHOD 03/14/2025 5:53 AM [facility] Coronavirus 229E Not Detected Not Detected LAB MICROBIOLOGY METHOD 03/14/2025 5:53 AM [facility] Coronavirus HKU1 Not Detected Not Detected LAB MICROBIOLOGY METHOD 03/14/2025 5:53 AM [facility] Coronavirus OC43 Not Detected Not Detected LAB MICROBIOLOGY METHOD 03/14/2025 5:53 AM [facility] Coronavirus NL63 Not Detected Not Detected LAB MICROBIOLOGY METHOD 03/14/2025 5:53 AM [facility] Parainfluenza Virus 1 Not Detected Not Detected LAB MICROBIOLOGY METHOD 03/14/2025 5:53 AM [facility] Parainfluenza Virus 2 Not Detected Not Detected LAB MICROBIOLOGY METHOD 03/14/2025 5:53 AM [facility] Parainfluenza Virus 3 Not Detected Not Detected LAB MICROBIOLOGY METHOD 03/14/2025 5:53 AM [facility] Parainfluenza Virus 4 Not Detected Not Detected LAB MICROBIOLOGY METHOD 03/14/2025 5:53 AM [facility] RSV PCR Not Detected Not Detected LAB MICROBIOLOGY METHOD 03/14/2025 5:53 AM [facility] Human Metapneumovirus A and B Not Detected Not Detected LAB MICROBIOLOGY METHOD 03/14/2025 5:53 AM [facility] Rhinovirus/Entero virus Not Detected Not Detected LAB MICROBIOLOGY METHOD 03/14/2025 5:53 AM EST [facility] Bordetella pertussis Not Detected Not Detected LAB MICROBIOLOGY METHOD 03/14/2025 5:53 AM EST [facility] Bordetella parapertussis Not Detected Not Detected LAB MICROBIOLOGY METHOD 03/14/2025 5:53 AM EST [facility] Mycoplasma pneumo by PCR Not Detected Not Detected LAB MICROBIOLOGY METHOD 03/14/2025 5:53 AM EST [facility] Chlamydia pneumoniae Not Detected Not Detected LAB MICROBIOLOGY METHOD 03/14/2025 5:53 AM EST [facility] SARS COV-2 Not Detected Not Detected LAB MICROBIOLOGY METHOD 03/14/2025 5:53 AM EST [facility] Swab Nasopharyngeal structure / Unknown Non-blood Collection / Unknown 03/14/2025 4:33 AM EST 03/14/2025 4:55 AM EST [facility] - 03/14/2025 5:53 AM EST Testing was performed using the [employer] Respiratory Pathogen PCR Assay. All results must be correlated with the clinical findings. Results should not be used as the sole basis for diagnosis. False Negative results may occur from the presence of sequence variants in the region targeted by the assay or the presence of inhibitors. Results may be affected by concurrent antiviral/antimicrobial therapy or levels of organisms that are below the limit of detection. Mario Bass MD LAB MICROBIOLOGY - GENERAL ORD ERABLES Final Result [facility] [address] [place] [address], * Troponin I high sensitivity (03/14/2025 4:32 AM EST) [facility] High Sensitivity Troponin I 5 <=54 ng/L LAB CHEMISTRY METHOD 03/14/2025 5:38 AM EST [facility] Blood Venous blood specimen / Unknown Venipuncture / Unknown 03/14/2025 4:32 AM EST 03/14/2025 4:54 AM EST Narrative [facility] - 03/14/2025 5:38 AM EST High levels of biotin in samples may falsely decrease hsTroponin values. Use caution when interpreting hsTroponin results in patients taking biotin who exhibit renal impairment (eGFR <60) or in patients taking more than 20 mg/day of biotin. Mario Bass MD LAB BLOOD ORDERABLES Final Res ult Performing Organization Address [facility]/ZIP Co de Phone Number [facility] [address] [place] [address], [place] [phone] * Thyroid stimulating hormone with reflex to free t4 and free t3 (03/14/2025 4:32 AM EST) TSH 3.53 0.40 - 4.00 mcIU/mL LAB CHEMISTRY METHOD 03/14/2025 6:57 AM EST [facility] Blood Venous blood specimen / Unknown Venipuncture / Unknown 03/14/2025 4:32 AM EST 03/14/2025 4:55 AM EST Juan Carlos Heard MD LAB BLOOD ORDERABLES Final Result Performing Organization Address [facility]/ZIP Co de Phone Number [facility] [address] [place] [address], [place] [phone] * Prothrombin time with INR (03/14/2025 4:32 AM EST) Protime 13.0 10.6 - 13.9 sec LAB COAGULATION METHOD 03/14/2025 5:03 AM EST [facility] INR 1.0 LAB COAGULATION METHOD 03/14/2025 5:03 AM EST [facility] Blood Venous blood specimen / Unknown Venipuncture / Unknown 03/14/2025 4:32 AM EST 03/14/2025 4:55 AM EST us Mario Bass MD LAB BLOOD ORDERABLES Final Res ult Performing Organization Address City/[facility]/ZIP Co de Phone Number [facility] [address] [place] [address], [place] [phone] * B-type natriuretic peptide (03/14/2025 4:32 AM EST) BNP 34 <=100 pcg/mL LAB CHEMISTRY METHOD 03/14/2025 5:44 AM EST [facility] Blood Venous blood specimen / Unknown Venipuncture / Unknown 03/14/2025 4:32 AM EST 03/14/2025 4:54 AM EST us Mario Bass MD LAB BLOOD ORDERABLES Final Res ult Performing Organization Address [facility]/ZIP Co de Phone Number [facility] [address] [place] [address], [place] [phone] * Magnesium (03/14/2025 4:32 AM EST) Magnesium 1.9 1.9 - 2.6 mg/dL LAB CHEMISTRY METHOD 03/14/2025 5:25 AM EST [facility] Blood Venous blood specimen / Unknown Venipuncture / Unknown 03/14/2025 4:32 AM EST 03/14/2025 4:55 AM EST us Mario Bass MD LAB BLOOD ORDERABLES Final Res ult Performing Organization Address City/[facility]/ZIP Co de Phone Number [facility] [address] [place] [address], [place] [phone] * Ethanol (03/14/2025 4:32 AM EST) Ethanol Level <3 0 - 10 mg/dL LAB CHEMISTRY METHOD 03/14/2025 5:25 AM EST [facility] Blood Venous blood specimen / Unknown Venipuncture / Unknown 03/14/2025 4:32 AM EST 03/14/2025 4:55 AM EST Mario Bass MD LAB BLOOD ORDERABLES Final Res ult [facility] [address] [place] [address], * XR Chest 1 View (03/14/2025 4:31 AM EST) Anatomical Region Laterality Modality Body Radiographic Eula ging 03/14/2025 7:04 AM EST Impressions 03/14/2025 7:06 AM EST FINDINGS/IMPRESSION: Low lung volumes. Small bilateral pleural effusions with adjacent atelectasis. No pneumothorax. Cardiac silhouette is enlarged with pulmonary vascular congestion present. Degenerative changes throughout the bones -------- FINAL REPORT -------- Dictated By: ULICES LOU Dictated Date: 03/14/2025 07:04 ET Assigned Physician: ULICES LOU Reviewed and Electronically Signed By: ULICES LOU Signed Date: 03/14/2025 07:06 ET Workstation ID: [id number] Transcribed By: Self Edit Transcribed Date: 03/14/2025 07:04 ET Narrative 03/14/2025 7:06 AM EST XR CHEST 1 VIEW INDICATION: Altered mental status TECHNIQUE: XR CHEST 1 VIEW COMPARISON: No priors available. Procedure Note Ulices Lou MD - 03/14/2025 XR CHEST 1 VIEW INDICATION: Altered mental status TECHNIQUE: XR CHEST 1 VIEW COMPARISON: No priors available. IMPRESSION: FINDINGS/IMPRESSION: Low lung volumes. Small bilateral pleural effusionswith adjacent atelectasis. No pneumothorax. Cardiac silhouette isenlarged with pulmonary vascular congestion present. Degenerative changesthroughout the bones -------- FINAL REPORT -------- Dictated By: ULICES LOU Dictated Date: 03/14/2025 07:04 ET Assigned Physician: ULICES LOU Reviewed and Electronically Signed By: ULICES LOU Signed Date: 03/14/2025 07:06 ET Workstation ID: [id number] Transcribed By: Self Edit Transcribed Date: 03/14/2025 07:04 ET us Mario Bass MD IMG XR PROCEDURES Final Result * CT Head Stroke wo Contrast (03/14/2025 4:30 AM EST) Anatomical Region Laterality Modality Head and Neck Computed Tomogra phy 03/14/2025 4:50 AM EST Addenda Addendum by Mendoza Agustin MD on 03/14/2025 4:55 AM EST ADDENDUM: This report was discussed with Mario Bass MD on Mar 14, 2025 04:54:00 EST. This document has been electronically signed by: Mary Jane Bright on 03/14/2025 04:55:03 Impressions 03/14/2025 4:50 AM EST 1. No acute disease in the brain. 2. Mild ventricular prominence is again noted. This document has been electronically signed by: Mendoza Agustin M.D. on 03/14/2025 04:50:48 Narrative 03/14/2025 4:50 AM EST INDICATION: altered mental status CT BRAIN WITHOUT CONTRAST COMPARISON: MRI brain 09/20/2023. FINDINGS: There is mild parenchymal atrophy. There is no evidence of an acute infarct or intraparenchymal hemorrhage. 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 Patchy areas of low attenuation are noted in the subcortical and periventricular regions of the supratentorial brain which are nonspecific but most likely represent chronic small vessel ischemic disease. There is no mass effect, midline shift, or extra-axial blood. Mild ventricular prominence is again noted. The bone bone windows are unremarkable. Procedure Note Mendoza Agustin MD - 03/14/2025 INDICATION: altered mental status CT BRAIN WITHOUT CONTRAST COMPARISON: MRI brain 09/20/2023. FINDINGS: There is mild parenchymal atrophy. There is no evidence of an acute infarct or intraparenchymal hemorrhage. 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 Patchy areas of low attenuation are noted in the subcortical and periventricular regions of the supratentorial brain which are nonspecific but most likely represent chronic small vessel ischemic disease. There is no mass effect, midline shift, or extra-axial blood. Mild ventricular prominence is again noted. The bone bone windows are unremarkable. IMPRESSION: 1. No acute disease in the brain. 2. Mild ventricular prominence is again noted. This document has been electronically signed by: Mendoza Agustin M.D. on 03/14/2025 04:50:48 Mario Bass MD IMLori CT PROCEDURES Edited Resul t - Final * CT Angio Head/Neck Stroke wo and/or w Contrast (03/14/2025 4:30 AM EST) Anatomical Region Laterality Modality Head and Neck Computed Tomogra phy 03/14/2025 5:36 AM EST Impressions 03/14/2025 5:36 AM EST 1. No occlusion or hemodynamically significant stenosis involving the cerebral vasculature. 2. Ztdg-[id number] atherosclerosis of the bilateral ICAs at the carotid siphons without flow limiting stenosis. 3. origin of the bilateral manager organizational. 4. Dominant right vertebral artery. Diminutive left vertebral artery functionally terminating within a PICA. 5. Advanced changes of chronic microvascular ischemia. Dilatation of the ventricular system likely related to overall parenchymal volume loss. CT angiography neck with contrast. 3D Postprocessing. Comparison: CT - CT HEAD STROKE WO CONTRAST - 03/14/25 04:17 EST Findings: Aortic arch and cervical great vessels are patent. Dominant right vertebral artery. Diminished caliber of the entirety of the left vertebral artery which function terminates within a PICA. No aneurysm, dissection, or occlusion. No cervical mass or fluid collection. Thyroid gland unremarkable. Lung apices clear. No acute fracture. Multilevel degenerative change of the cervical spine IMPRESSION: 1. No occlusion or hemodynamically significant stenosis involving the neck vasculature. 2. Dominant right vertebral artery. Diminished caliber of the entirety of the left vertebral artery which function terminates within a PICA. This document has been electronically signed by: Surinder Mckenna DO on 03/14/2025 05:36:38 Narrative 03/14/2025 5:36 AM EST INDICATION: altered mental status CT angiography head with contrast. 3D Postprocessing. Comparison: CT - CT HEAD STROKE WO CONTRAST - 03/14/25 04:17 EST Findings: Intracranial arteries are patent. Mild to moderate atherosclerosis of the bilateral ICAs at the carotid siphons without flow-limiting stenosis. origin of the bilateral manager organizational. Dominant right vertebral artery. Diminutive left vertebral artery functionally terminating within a PICA. No aneurysm, dissection, or occlusion. No abnormal intracranial enhancement. No intracranial mass, midline shift, abnormal contrast enhancement, or acute hemorrhage. Subcortical/periventricular white matter hypoattenuation statistically representing changes of chronic microvascular ischemia. Age related global parenchymal volume loss. Dilated ventricular system likely related to overall parenchymal volume loss No skull fracture. Procedure Note Surinder Mckenna MD - 03/14/2025 INDICATION: altered mental status CT angiography head with contrast. 3D Postprocessing. Comparison: CT - CT HEAD STROKE WO CONTRAST - 03/14/25 04:17 EST Findings: Intracranial arteries are patent. Mild to moderate atherosclerosis of the bilateral ICAs at the carotid siphons without flow-limiting stenosis. origin of the bilateral manager organizational. Dominant right vertebral artery. Diminutive left vertebral artery functionally terminating within a PICA. No aneurysm, dissection, or occlusion. No abnormal intracranial enhancement. No intracranial mass, midline shift, abnormal contrast enhancement, or acute hemorrhage. Subcortical/periventricular white matter hypoattenuation statistically representing changes of chronic microvascular ischemia. Age relatedglobal parenchymal volume loss. Dilated ventricular system likely related to overall parenchymal volume loss No skull fracture. IMPRESSION: 1. No occlusion or hemodynamically significant stenosis involving the cerebral vasculature. 2. Zqwg-bk-exosshja atherosclerosis of the bilateral ICAs at the carotid siphons without flow limiting stenosis. 3. origin of the bilateral manager organizational. 4. Dominant right vertebral artery. Diminutive left vertebral artery functionally terminating within a PICA. 5. Advanced changes of chronic microvascular ischemia. Dilatation of the ventricular system likely related to overall parenchymal volume loss. CT angiography neck with contrast. 3D Postprocessing. Comparison: CT - CT HEAD STROKE WO CONTRAST - 03/14/25 04:17 EST Findings: Aortic arch and cervical great vessels are patent. Dominant right vertebral artery. Diminished caliber of the entirety ofthe left vertebral artery which function terminates within a PICA. No aneurysm, dissection, or occlusion. No cervical mass or fluid collection. Thyroid gland unremarkable. Lung apices clear. No acute fracture. Multilevel degenerative change of the cervical spine IMPRESSION: 1. No occlusion or hemodynamically significant stenosis involving theneck vasculature. 2. Dominant right vertebral artery. Diminished caliber of the entiretyof the left vertebral artery which function terminates within a PICA. This document has been electronically signed by: Surinder Mckenna DO on 03/14/2025 05:36:38 us Mario Bass MD IMG CT PROCEDURES Final Result * (ABNORMAL) POCT Glucose, blood (03/14/2025 4:27 AM EST) Glucose POCT 103(H) 70 - 100 mg/dL 03/14/2025 4:28 AM EST [facility] Blood Capillary blood specimen / Unknown 03/14/2025 4:27 AM EST 03/14/2025 4:29 AM EST Mario Bass MD LAB POINT OF CARE TE ST DOCKED DEVICE UNSOLICITED RESULTS Final Result [facility] [address] [place] [address], * [place] CRITICAL CARE 30-74 MINUTES (03/14/2025 4:13 AM EST) Narrative Mario Bass MD - 03/14/2025 4:13 AM EST Mario Bass MD 03/14/2025 7:56 PM Critical Care Performed by: Mario Bass MD Authorized by: Mario Bass MD Critical care provider statement: Critical care time (minutes): 36 Total face to face critical care time (minutes): 10 Critical care time was exclusive of: Separately billable procedures and treating other patients Critical care was necessary to treat or prevent imminent or life-threatening deterioration of the 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 Critical care was time spent personally by me on the following activities: Discussions with consultants, evaluation of patient's response to treatment, examination of patient, obtaining history from patient or surrogate, ordering and performing treatments and interventions, ordering and review of laboratory studies, ordering and review of radiographic studies, pulse oximetry and re-evaluation of patient's condition Face to face critical care was time spent personally by me on the following activities: Examination of patient and re-evaluation of patient's condition I assumed direction of critical care for this patient from another provider in my specialty: no Care discussed with: admitting provider Comments: The patient's central nervous system appeared to be acutely impaired with high risk for life-threatening deterioration. Interventions intended to prevent such deterioration included activation of stroke alert on arrival, emergent CT imaging of the brain without contrast, and angiography of the head and neck with IV contrast, consultation with neurology, discussion with radiology, serial examinations, discussion with family members, and admission to the hospital for continued evaluation and management to a monitored setting. For this reason critical care time of 36 minutes exclusive of procedures is requested. us Mario Bass MD IN CLINIC/BEDSIDE ORDERABLES F inal Result * (ABNORMAL) MG Mammo Digital Screening w Clyde bilat (02/15/2025 3:14 PM EDT) Anatomical Region Laterality Modality Breast Bilateral Mammography 02/19/2025 7:55 AM EDT Impressions 02/19/2025 8:02 AM EDT Focal asymmetry upper outer right breast. Additional views of the right breast in the full-field mediolateral, spot compression MLO, and spot compression CC projections are suggested. Ultrasound may also be needed. BI-RADS CATEGORY: 0 - INCOMPLETE - NEED ADDITIONAL IMAGING EVALUATION RECOMMENDATION: Additional right breast imaging recommended. Ultrasound is recommended for the Right Breast. Mammo Location: [facility], [address] [place] [address], [id number], . -------- FINAL REPORT -------- Dictated By: Melissa Beltran Dictated Date: 02/19/2025 07:55 ET Assigned Physician: Melissa Beltran Reviewed and Electronically Signed By: Melissa Beltran Signed Date: 02/19/2025 08:02 ET Workstation ID: [id number] Transcribed By: Self Edit Transcribed Date: 02/19/2025 07:55 ET Narrative 02/19/2025 8:02 AM EDT CLINICAL: 84 years old, Female, routine annual exam. COMPARISON: Mammograms dating back to 01/15/2021 with most recent of 01/31/2024. TECHNIQUE: Bilateral MLO and CC views were obtained digitally with 3-D mammogram (digital breast tomosynthesis). Computer-aided detection was utilized in evaluation of this exam (CAD). FINDINGS: There is no evidence of architectural distortion. No worrisome calcifications are evident. There is a focal asymmetry in the upper outer right breast. BREAST DENSITY: B - There are scattered areas of fibroglandular density. Procedure Note Melissa Beltran MD - 02/19/2025 CLINICAL: 84 years old, Female, routine annual exam. COMPARISON: Mammograms dating back to 01/15/2021 with most recent of01/31/2024. TECHNIQUE: Bilateral MLO and CC views were obtained digitally with 3-Dmammogram (digital breast tomosynthesis). Computer-aided detection wasutilized in evaluation of this exam (CAD). FINDINGS: There is no evidence of architectural distortion. No worrisomecalcifications are evident. There is a focal asymmetry in the upper outerright breast. BREAST DENSITY: B - There are scattered areas of fibroglandular density. IMPRESSION: Focal asymmetry upper outer right breast. Additional views of the rightbreast in the full-field mediolateral, spot compression MLO, and spotcompression CC projections are suggested. Ultrasound may also beneeded. BI-RADS CATEGORY: 0 - INCOMPLETE - NEED ADDITIONAL IMAGING EVALUATION RECOMMENDATION: Additional right breast imaging recommended. Ultrasound is recommended forthe Right Breast. Mammo Location: [facility], [address] [place] [address], [id number], . -------- FINAL REPORT -------- Dictated By: Melissa Beltran Dictated Date: 02/19/2025 07:55 ET Assigned Physician: Melissa Beltran Reviewed and Electronically Signed By: Melissa Beltran Signed Date: 02/19/2025 08:02 ET Workstation ID: [id number] Transcribed By: Self Edit Transcribed Date: 02/19/2025 07:55 ET Fuentes Roy MD IMG BI PROCEDURES Final Result * External MRI Report (01/12/2025) Only the most recent of2 resultswithin the time period is included. Anatomical Region Laterality Modality Magnetic Resonan ce Provider Fouzia Onbase IMG MRI PROCEDURES Final Result * Falls Risk Assessment (01/12/2024) Pathologist [facility] Falls Risk Assessment Abstracted Historical Provider HEALTH MAINTENANCE Final Result * Depression Screening (07/12/2023) Depression Screening Abstracted Historical Provider HEALTH MAINTENANCE Final Result * DXA BONE DENSITY STUDY 1+ [...] classified as having normal bone density. [facility] Department of Internal Medicine [...] classified as having normal bone density. [facility] Department of Internal Medicine [...] over-estimation of fracture risk by FRAX. 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 Do not modify or discontinue any currently active code status orders. Care Teams Spa Attendant Relationship Specialty Start Date End Date Fuentes Roy MD [address] [place] [address] PCP - General 06/06/03
--- OUTSIDE RECORDS SUMMARY | 2025-04-05 21:32 | XMS_ITS | Patient Health Record ---
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 Role Phone Manuela HENSON, Fuentes Nieves Primary Care Provider UnaLiana Corral Unavailable [phone] Allergies Allergen (clinical drug ingredient) Drug/Non Drug [...] Status Risk Notes Problem Acquired hallux valgus (64036896) Hallux valgus (acquired), right foot (M20.11) Active confirmed Problem Acquired hammer toe of right foot ([id number] 105) Other hammer toe(s) (acquired), right foot (M20.41) Active confirmed Plan Of Treatment Pending Test Test Name Order Date X ray : Foot, right 3V 07/15/2020 X ray : Ankle, right 3V 09/14/2011 Insurance Providers Payer Name Payer Address Payer Phone Subscriber Number Group Number Insured Name Patient Relationship to Insured Coverage Start Date Coverage End Date Medicare [employer] [address] [place] [address] [id number] Maria A Lawson Self - patient is the insured [employer] [address] [place] [address] [phone] [id number] Maria A Lawson Self - patient is the insured Medical (General) History Medical History History ICD Code measles Back,Hip,and Knee pain Depression Thyroid disorder Arthritis Surgical History Surgery Date(Month/Year) hand surgery uterine suspension
--- OUTSIDE RECORDS SUMMARY | 2025-05-13 19:00 | XMS_ITS | Clinical Summary ---
Author Organization Unknown Care Team Providers Care Rn Case Manager Name Role Phone ESTIVEN WHITNEY ACTIVE UNTIL 10/30/2022, ZHONGKARLENE Unavailable Unavailable JOHN RN, BRIAN Unavailable Unavailab mimi [employer]IPMAN METEOROLOGICAL TECHNICIAN, RUFUS Unavailable Unavailable ERVIN PT, FAUZIA Unavailable Unavailable [facility] DIETITIAN, CHRIS Unavailable Unavailable READING OT, DONNY Unavailable Unavailable CONDINO WINDY/HERMAN, WADE Unavailable Unav ailable [facility], AUBREY Unavailable Unavailable Payers Payer Name Policy Type Policy Number Effective Date Expira tion Date MEDICARE.NGS.PDGM [id number] Problems Condition Name Condition Details Condition Category Status Onset Date Resolution Date Last Treatment Date Treating Clinician Comments ALZHEIMER'S DISEASE, UNSPECIFIED Active 2024-05 00:00: 00 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, UNSP SEV, WITH MOOD DISTRB Active 2024-05 00:00: 00 VASCULAR DEMENTIA, UNSPECIFIED SEVERITY, WITH MOOD DISTURB Active 2024-05 00:00: 00 DEPRESSION, UNSPECIFIED Active 2024-05 00:00: 00 CHRONIC OBSTRUCTIVE PULMONARY DISEASE, UNSPECIFIED Active 2024-05 00:00: 00 ESSENTIAL (PRIMARY) HYPERTENSION Active 2024-05 00:00: 00 HYPOTHYROIDI SM, UNSPECIFIED Active 2024-05 00:00: 00 PURE HYPERCHOLEST EROLEMIA, UNSPECIFIED Active 2024-05 00:00: 00 UNSPECIFIED MACULAR DEGENERATION Active 2024-05 00:00: 00 HYPOPARATHYR OIDISM, UNSPECIFIED Active 2024-05 00:00: 00 ALLERGIC RHINITIS, UNSPECIFIED Active 2024-05 00:00: 00 POSTCONCUSSI ONAL SYNDROME Active 2024-05 00:00: 00 FLUID OVERLOAD, UNSPECIFIED Active 2024-05 00:00: 00 GASTRO-ESOPH AGEAL REFLUX DISEASE WITHOUT ESOPHAGITIS Active 2024-05 00:00: 00 PERSONAL HISTORY OF NICOTINE DEPENDENCE Active 2024-05 00:00: 00 PRSNL HX OF TIA (TIA), 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 Ordering Clinician Indication Dosage Frequency Signature (SIG) Comments Components citalopram 10 mg tablet 2024-05 00:00: 00 03-16 00:00 :00 No [id number] Per instruc tions EVERY DAY Per instructio ns EVERY DAY (route: oral) Med Classific ation: Central Nervous System Agents memantine 28 mg capsule sprinkle,ex tended release 24hr 2024-05 0-31 00:00: 00 03-16 00:00 :00 No [id number] Per instruc tions EVERY DAY Per instructio ns EVERY DAY (route: oral) Med Classific ation: Cognitive Disorder Therapy levothyroxi ne 50 mcg tablet 2024-05 0-22 00:00: 00 03-16 00:00 :00 No [id number] Per instruc tions DAILY Per instructio ns DAILY (route: oral) Med Classific ation: Endocrine atorvastati n 10 mg tablet 2024-05 00:00: 00 Yes [id number] HIGH LIPIDS 1 tablet BEDTIME 1 tablet BEDTIME (route: oral) Med Classific ation: Cardiovas cular Therapy Agents azelastine 137 mcg-flutica sone 50 mcg/spray nasal spray 2024-05 00:00: 00 Yes [id number] RHINITIS 1 spray DAILY 1 spray DAILY (route: nasal) Med Classific ation: Respirato ry Therapy Agents cholecalcif nico (vitamin D3) 50 mcg (2,000 unit) tablet 2024-05 00:00: 00 Yes [id number] SUPPLEMENT 1 tablet DAILY 1 tablet DAILY (route: oral) Med Classific ation: Electroly te Balance-N utritiona l Products citalopram 10 mg tablet 2024-05 00:00: 00 Yes [id number] SADNESS 2 tablet DAILY 2 tablet DAILY (route: oral) Med Classific ation: Central Nervous System Agents cyanocobala min (vit B-12) 1,000 mcg chewable tablet 2024-05 00:00: 00 Yes [id number] SUPPLEMENT 1 tablet DAILY 1 tablet DAILY (route: oral) Med Classific ation: Electroly te Balance-N utritiona l Products Hair-Skin-N ail (vit A,C-biotin- Zn-Cu) 2,500 unit-100 mg-2,500 mcg cap 2024-05 00:00: 00 Yes [id number] SUPPLEMENT 2 capsule DAILY 2 capsule DAILY (route: oral) Med Classific ation: Electroly te Balance-N utritiona l Products levothyroxi ne 50 mcg tablet 2024-05 00:00: 00 Yes [id number] HYPOTHYROID ISM 1 tablet EVERY AM 1 tablet EVERY AM (route: oral) Med Classific ation: Endocrine memantine 28 mg capsule sprinkle,ex tended release 24hr 2024-05 00:00: 00 Yes [id number] DEMENTIA 1 capsule BEDTIME 1 capsule BEDTIME (route: oral) Med Classific ation: Cognitive Disorder Therapy pantoprazol e 40 mg tablet,stefan yed release 2024-05 00:00: 00 Yes [id number] GERD 1 tablet DAILY 1 tablet DAILY (route: oral) Med Classific ation: Gastroint estinal Therapy Agents PreserVisio n AREDS 2 Plus Multivit 200 mcg-15 mcg-5 mg-1 mg capsule 2024-05 00:00: 00 Yes [id number] EYE VITAMIN 2 capsule DAILY 2 capsule DAILY (route: oral) Med Classific ation: Electroly te Balance-N utritiona l Products Vitamin C 500 mg tablet 2024-05 00:00: 00 Yes [id number] SUPPLEMENT 1 tablet DAILY 1 tablet DAILY (route: oral) Med Classific ation: Electroly te Balance-N utritiona l Products Women's 50 Plus Advanced 400 mcg-20 mcg tablet 2024-05 00:00: 00 Yes [id number] SUPPLEMENT 1 tablet DAILY 1 tablet DAILY (route: oral) Med Classific ation: Electroly te Balance-N utritiona l Products Vital Signs Vital Name Observation Time Observation Value Commen ts Temperature 2025-04-04 10:40:00.000 98.3 [degF] Temperature 2025-04-03 12:49:00.000 97 [degF] Temperature 2025-03-30 11:59:00.000 96.9 [degF] Temperature 2025-03-26 11:06:00.000 97 [degF] Temperature 2025-03-21 14:07:00.000 98.3 [degF] Temperature 2025-03-21 10:21:00.000 97.3 [degF] Temperature 2025-03-20 10:33:00.000 97.2 [degF] Temperature 2025-03-16 12:53:00.000 98.2 [degF] BMI (%) 2025-03-16 12:53:00.000 29 kg/m2 Height 2025-03-16 12:53:00.000 63 [in_us] Pulse 2025-04-04 10:40:00.000 71 /min Pulse 2025-04-03 12:49:00.000 70 /min Pulse 2025-03-30 11:59:00.000 77 /min Pulse 2025-03-26 11:06:00.000 80 /min Pulse 2025-03-21 14:07:00.000 68 /min Pulse 2025-03-21 10:21:00.000 60 /min Pulse 2025-03-20 10:33:00.000 84 /min Pulse 2025-03-16 12:53:00.000 68 /min O2 Saturation (%) 2025-04-04 10:40:00.000 96 % O2 Saturation (%) 2025-03-30 11:59:00.000 93 % O2 Saturation (%) 2025-03-21 14:07:00.000 93 % O2 Saturation (%) 2025-03-21 10:21:00.000 96 % O2 Saturation (%) 2025-03-20 10:33:00.000 96 % O2 Saturation (%) 2025-03-16 12:53:00.000 96 % Respirations 2025-04-04 10:40:00.000 18 /min Respirations 2025-04-03 12:49:00.000 18 /min Respirations 2025-03-30 11:59:00.000 18 /min Respirations 2025-03-26 11:06:00.000 18 /min Respirations 2025-03-21 14:07:00.000 18 /min Respirations 2025-03-21 10:21:00.000 18 /min Respirations 2025-03-20 10:33:00.000 18 /min Respirations 2025-03-16 12:53:00.000 18 /min Weight (lbs) 2025-03-16 12:53:00.000 165 [lb_av] Systolic Blood Pressure 2025-04-04 10:40:00.000 112 mm [Hg] Systolic Blood Pressure 2025-04-03 12:49:00.000 106 mm [Hg] Systolic Blood Pressure 2025-03-30 11:59:00.000 120 mm [Hg] Systolic Blood Pressure 2025-03-26 11:06:00.000 110 mm [Hg] Systolic Blood Pressure 2025-03-21 14:07:00.000 110 mm [Hg] Systolic Blood Pressure 2025-03-21 10:21:00.000 120 mm [Hg] Systolic Blood Pressure 2025-03-20 10:33:00.000 104 mm [Hg] Systolic Blood Pressure 2025-03-16 12:53:00.000 124 mm [Hg] Diastolic Blood Pressure 2025-04-04 10:40:00.000 60 mm [Hg] Diastolic Blood Pressure 2025-04-03 12:49:00.000 64 mm [Hg] Diastolic Blood Pressure 2025-03-30 11:59:00.000 64 mm [Hg] Diastolic Blood Pressure 2025-03-26 11:06:00.000 62 mm [Hg] Diastolic Blood Pressure 2025-03-21 14:07:00.000 65 mm [Hg] Diastolic Blood Pressure 2025-03-21 10:21:00.000 60 mm [Hg] Diastolic Blood Pressure 2025-03-20 10:33:00.000 72 mm [Hg] Diastolic Blood Pressure 2025-03-16 12:53:00.000 56 mm [Hg] Plan of Treatment Planned Activity Planned Date Details Comments Future Scheduled Test RN TO OBSE RVE, ASSESS, EVALUATE, AND DEVELOP AN INDIVIDUALIZED PLAN OF CARE. AGENCY MAY ACCEPT ORDERS FROM CONSULTING PHYSICIANS. RN TO OBSERVE AND ASSESS, METEOROLOGICAL TECHNICIAN/METAL BONDER TO OBSERVE FOR RISK FOR FALLS AND INSTRUCT IN FALL PREVENTION, HOME SAFETY, MEDICATION MANAGEMENT, INFECTION PREVENTION, AND NUTRITION MANAGEMENT. RN/METEOROLOGICAL TECHNICIAN/METAL BONDER NURSE MAY PERFORM O2 SATURATION LEVEL ON ADMISSION AND PRN FOR RN TO ASSESS/METEOROLOGICAL TECHNICIAN TO OBSERVE PATIENT, WITH NOTIFICATION TO THE PHYSICIAN IF SATURATION IS 90% IN THE ABSENCE OF MORE SPECIFIC PARAMETERS FROM THE PHYSICIAN. AGENCY MAY PERFORM A RESUMPTION OF CARE VISIT FOLLOWING ANY HOSPITAL ADMISSION. RN/METEOROLOGICAL TECHNICIAN/METAL BONDER TO MONITOR CO-MORBID CONDITIONS LISTED ON THE PLAN OF CARE AND ANY NEW CONDITIONS THAT PRESENT THEMSELVES DURING THIS EPISODE TO IDENTIFY CHANGES AND INTERVENE TO MINIMIZE COMPLICATIONS. [code = RN TO OBSERVE, ASSESS, EVALUATE, AND DEVELOP AN INDIVIDUALIZED PLAN OF CARE. AGENCY MAY ACCEPT ORDERS FROM CONSULTING PHYSICIANS. RN TO OBSERVE AND ASSESS, METEOROLOGICAL TECHNICIAN/METAL BONDER TO OBSERVE FOR RISK FOR FALLS AND INSTRUCT IN FALL PREVENTION, HOME SAFETY, MEDICATION MANAGEMENT, INFECTION PREVENTION, AND NUTRITION MANAGEMENT. RN/METEOROLOGICAL TECHNICIAN/METAL BONDER NURSE MAY PERFORM O2 SATURATION LEVEL ON ADMISSION AND PRN FOR RN TO ASSESS/METEOROLOGICAL TECHNICIAN TO OBSERVE PATIENT, WITH NOTIFICATION TO THE PHYSICIAN IF SATURATION IS 90% IN THE ABSENCE OF MORE SPECIFIC PARAMETERS FROM THE PHYSICIAN. AGENCY MAY PERFORM A RESUMPTION OF CARE VISIT FOLLOWING ANY HOSPITAL ADMISSION. RN/METEOROLOGICAL TECHNICIAN/METAL BONDER TO MONITOR CO-MORBID CONDITIONS LISTED ON THE PLAN OF CARE AND ANY NEW CONDITIONS THAT PRESENT THEMSELVES DURING THIS EPISODE TO IDENTIFY CHANGES AND INTERVENE TO MINIMIZE COMPLICATIONS.] Future Scheduled Test MEDICATION MANAGEMENT; RN/METEOROLOGICAL TECHNICIAN/METAL BONDER TO REVIEW MEDICATIONS FOR INTERACTIONS, EFFECTIVENESS OF DRUG THERAPY, AND SIGNS/SYMPTOMS OF ADVERSE REACTIONS. MAY INSTRUCT AND REINFORCE MEDICATION TEACHING RELATED TO THE USE OF MEDICATIONS, DOSAGE, FREQUENCY, PURPOSE, SIDE EFFECTS, AND TO REPORT COMPLICATIONS. [code = MEDICATION MANAGEMENT; RN/METEOROLOGICAL TECHNICIAN/METAL BONDER TO REVIEW MEDICATIONS FOR INTERACTIONS, EFFECTIVENESS OF DRUG THERAPY, AND SIGNS/SYMPTOMS OF ADVERSE REACTIONS. MAY INSTRUCT AND REINFORCE MEDICATION TEACHING RELATED TO THE USE OF MEDICATIONS, DOSAGE, FREQUENCY, PURPOSE, SIDE EFFECTS, AND TO REPORT COMPLICATIONS.] Future Scheduled Test RISK FOR H OSPITALIZATION; RN TO ASSESS/TEACH, METAL BONDER/METEOROLOGICAL TECHNICIAN TO OBSERVE/TEACH PATIENT/CAREGIVER ON RISK FOR HOSPITALIZATION/EMERGENCY ROOM VISITS, TEACH SIGNS AND SYMPTOMS THAT PUT PATIENT AT RISK, WHEN TO NOTIFY NURSE/PHYSICIAN OF COMPLICATIONS/DECLINE, AND WHEN TO CALL 911. [code = RISK FOR HOSPITALIZATION; RN TO ASSESS/TEACH, METAL BONDER/METEOROLOGICAL TECHNICIAN TO OBSERVE/TEACH PATIENT/CAREGIVER ON RISK FOR HOSPITALIZATION/EMERGENCY ROOM VISITS, TEACH SIGNS AND SYMPTOMS THAT PUT PATIENT AT RISK, WHEN TO NOTIFY NURSE/PHYSICIAN OF COMPLICATIONS/DECLINE, AND WHEN TO CALL 911.] Future Scheduled Test CARDIOVASC ULAR SYSTEM; RN TO ASSESS/TEACH, METEOROLOGICAL TECHNICIAN/METAL BONDER TO OBSERVE/TEACH RELATED TO ALTERED CARDIOVASCULAR STATUS TO MINIMIZE COMPLICATIONS AND REDUCE HOSPITALIZATION. [code = CARDIOVASCULAR SYSTEM; RN TO ASSESS/TEACH, METEOROLOGICAL TECHNICIAN/METAL BONDER TO OBSERVE/TEACH RELATED TO ALTERED CARDIOVASCULAR STATUS TO MINIMIZE COMPLICATIONS AND REDUCE HOSPITALIZATION.] Future Scheduled Test HYPERTENSI ON MANAGEMENT; RN TO ASSESS AND TEACH, METEOROLOGICAL TECHNICIAN/METAL BONDER TO OBSERVE AND TEACH WARNING SIGNS AND SYMPTOMS TO AVOID HOSPITALIZATION. [code = HYPERTENSION MANAGEMENT; RN TO ASSESS AND TEACH, METEOROLOGICAL TECHNICIAN/METAL BONDER TO OBSERVE AND TEACH WARNING SIGNS AND SYMPTOMS TO AVOID HOSPITALIZATION.] Future Scheduled Test SKIN INTEG RITY RN TO ASSESS AND TEACH, METEOROLOGICAL TECHNICIAN/METAL BONDER TO OBSERVE AND TEACH INTEGUMENTARY STATUS TO IDENTIFY CHANGES AND INTERVENE TO MINIMIZE COMPLICATIONS. PROVIDE SKILLED TEACHING OF GENERAL WOUND AND SKIN CARE AND PREVENTION RELATED TO ACTUAL ALTERED SKIN INTEGRITY [code = SKIN INTEGRITY RN TO ASSESS AND TEACH, METEOROLOGICAL TECHNICIAN/METAL BONDER TO OBSERVE AND TEACH INTEGUMENTARY STATUS TO IDENTIFY CHANGES AND INTERVENE TO MINIMIZE COMPLICATIONS. PROVIDE SKILLED TEACHING OF GENERAL WOUND AND SKIN CARE AND PREVENTION RELATED TO ACTUAL ALTERED SKIN INTEGRITY] Future Scheduled Test PAIN MANAG EMENT; RN TO ASSESS AND TEACH, METAL BONDER/METEOROLOGICAL TECHNICIAN TO OBSERVE AND TEACH AND PROVIDE EDUCATION ON PAIN MANAGEMENT TECHNIQUES. [code = PAIN MANAGEMENT; RN TO ASSESS AND TEACH, METAL BONDER/METEOROLOGICAL TECHNICIAN TO OBSERVE AND TEACH AND PROVIDE EDUCATION ON PAIN MANAGEMENT TECHNIQUES.] Future Scheduled Test FALL REDUC TION MANAGEMENT; RN TO ASSESS AND OBSERVE, METEOROLOGICAL TECHNICIAN/METAL BONDER TO OBSERVE FALL RISK FACTORS AND EDUCATE PATIENT/CAREGIVER ON STRATEGIES TO MINIMIZE THE RISK OF FALLING. [code = FALL REDUCTION MANAGEMENT; RN TO ASSESS AND OBSERVE, METEOROLOGICAL TECHNICIAN/METAL BONDER TO OBSERVE FALL RISK FACTORS AND EDUCATE PATIENT/CAREGIVER ON STRATEGIES TO MINIMIZE THE RISK OF FALLING.] Future Scheduled Test NEUROLOGIC AL SYSTEM MANAGEMENT; RN TO ASSESS AND TEACH, METAL BONDER/METEOROLOGICAL TECHNICIAN TO OBSERVE AND TEACH RELATED TO ALTERED NEUROLOGICAL STATUS TO MINIMIZE COMPLICATIONS AND REDUCE HOSPITALIZATION. TIA EDUCATION [code = NEUROLOGICAL SYSTEM MANAGEMENT; RN TO ASSESS AND TEACH, METAL BONDER/METEOROLOGICAL TECHNICIAN TO OBSERVE AND TEACH RELATED TO ALTERED NEUROLOGICAL STATUS TO MINIMIZE COMPLICATIONS AND REDUCE HOSPITALIZATION. TIA EDUCATION] Future Scheduled Test COPD MONIT ORING RN/METAL BONDER/METEOROLOGICAL TECHNICIAN TO MONITOR FOR SIGNS AND SYMPTOMS OF COPD EXACERBATION, MONITOR FOR ADHERENCE TO MEDICATION AND COPD MANAGEMENT. [code = COPD MONITORING RN/METAL BONDER/METEOROLOGICAL TECHNICIAN TO MONITOR FOR SIGNS AND SYMPTOMS OF COPD EXACERBATION, MONITOR FOR ADHERENCE TO MEDICATION AND COPD MANAGEMENT.] Future Scheduled Test DEMENTIA M ANAGEMENT WITHOUT BEHAVIORAL DISTURBANCES; RN TO ASSESS AND TEACH, METAL BONDER/METEOROLOGICAL TECHNICIAN TO OBSERVE AND TEACH AND TO PROVIDE EDUCATION ON DEMENTIA WITHOUT BEHAVIORAL DISTURBANCES. ADVANCED ALZHEIMER'S DEMENTIA WITH SUPERIMPOSED VASCULAR DEMENTIA [code = DEMENTIA MANAGEMENT WITHOUT BEHAVIORAL DISTURBANCES; RN TO ASSESS AND TEACH, METAL BONDER/METEOROLOGICAL TECHNICIAN TO OBSERVE AND TEACH AND TO PROVIDE EDUCATION ON DEMENTIA WITHOUT BEHAVIORAL DISTURBANCES. ADVANCED ALZHEIMER'S DEMENTIA WITH SUPERIMPOSED VASCULAR DEMENTIA] Future Scheduled Test OCCUPATION AL THERAPIST TO EVALUATE FOR ADLS AND EDUCATION [code = OCCUPATIONAL THERAPIST TO EVALUATE FOR ADLS AND EDUCATION] Future Scheduled Test SPEECH THE RAPIST TO EVALUATE FOR SWALLOWING AND EDUCATION [code = SPEECH THERAPIST TO EVALUATE FOR SWALLOWING AND EDUCATION] Future Scheduled Test AGENCY MAY PERFORM A RESUMPTION OF CARE VISIT FOLLOWING ANY HOSPITAL ADMISSION. OT TO EVALUATE, OBSERVE / ASSESS, AND MONITOR, WINDY TO OBSERVE AND MONITOR, PROVIDE SKILLED THERAPEUTIC INTERVENTION, ACTIVITY, EDUCATION, AND TRAINING TO ADDRESS; BED TRANSFERS (OT/WINDY) CHAIR TRANSFERS (OT/WINDY) TOILET TRANSFER (OT/MANAGER OF CORPORATE COMMUNICATIONS) BATH/SHOWER TRANSFER (OT/WINDY) POSTURAL CONTROL/BALANCE (OT/WINDY) THERAPEUTIC EXERCISE (OT/WINDY) OT/WINDY TO MONITOR AND EDUCATE ON OXYGEN SATURATION DURING ADLS/IADLS, NOTIFY PHYSICIAN AND/OR THE RN CLINICAL AGENCY MANAGER FOR PHYSICIAN NOTIFICATION AND IF O2 SATS BELOW 90% AFTER 10 MIN OF REST. OT/MANAGER OF CORPORATE COMMUNICATIONS MAY EDUCATE ON PAIN MANAGEMENT CLINICALLY INDICATED. OT / WINYD TO IDENTIFY FALL RISK FACTORS; EDUCATE THE PATIENT/CAREGIVER ON WAYS TO REDUCE FALL RISK FACTORS AND ESTABLISH HOME EXERCISE PROGRAM TO MINIMIZE FALL RISK. MAY TEACH THE PATIENT FLOOR RECOVERY WHEN CLINICALLY APPROPRIATE. [code = AGENCY MAY PERFORM A RESUMPTION OF CARE VISIT FOLLOWING ANY HOSPITAL ADMISSION. OT TO EVALUATE, OBSERVE / ASSESS, AND MONITOR, WINDY TO OBSERVE AND MONITOR, PROVIDE SKILLED THERAPEUTIC INTERVENTION, ACTIVITY, EDUCATION, AND TRAINING TO ADDRESS; BED TRANSFERS (OT/MANAGER OF CORPORATE COMMUNICATIONS) CHAIR TRANSFERS (OT/WINDY) TOILET TRANSFER (OT/WINDY) BATH/SHOWER TRANSFER (OT/WINDY) POSTURAL CONTROL/BALANCE (OT/WINDY) THERAPEUTIC EXERCISE (OT/WINDY) OT/WINDY TO MONITOR AND EDUCATE ON OXYGEN SATURATION DURING ADLS/IADLS, NOTIFY PHYSICIAN AND/OR THE RN CLINICAL AGENCY MANAGER FOR PHYSICIAN NOTIFICATION AND IF O2 SATS BELOW 90% AFTER 10 MIN OF REST. OT/WINDY MAY EDUCATE ON PAIN MANAGEMENT CLINICALLY INDICATED. OT / MANAGER OF CORPORATE COMMUNICATIONS TO IDENTIFY FALL RISK FACTORS; EDUCATE THE PATIENT/CAREGIVER ON WAYS TO REDUCE FALL RISK FACTORS AND ESTABLISH HOME EXERCISE PROGRAM TO MINIMIZE FALL RISK. MAY TEACH THE PATIENT FLOOR RECOVERY WHEN CLINICALLY APPROPRIATE.] Goal Patient Goal - G ET STRONGER, GET MEDICATIONS UNDER CONTROL Goal Provider Goal - A PLAN OF CARE WILL BE ESTABLISHED THAT MEETS THE PATIENT S NEEDS. PATIENT WILL DEMONSTRATE OXYGEN SATURATION WITHIN NORMAL LIMITS OR PATIENT S OPTIMAL LEVEL ESTABLISHED BY THE PHYSICIAN THROUGHOUT CARE. CHANGES TO CO-MORBID CONDITIONS AND ANY NEW CONDITIONS WILL BE IDENTIFIED AND REPORTED TO THE PHYSICIAN. Goal Provider Goal - PATIENT/CAREGIVER TO VERBALIZE, AND CONSISTENTLY DEMONSTRATE EFFECTIVE, SAFE MANAGEMENT OF MEDICATION INCLUDING KNOWLEDGE OF EFFECTIVENESS, POTENTIAL SIDE EFFECTS AND DRUG REACTIONS AND WHEN TO CONTACT THE APPROPRIATE CARE PROVIDER. PATIENT/CAREGIVER WILL BE ABLE TO VERBALIZE UNDERSTANDING OF MEDICATION REGIMEN AND ACCURATELY TAKE MEDICATIONS PRESCRIBED WITHOUT ADVERSE EFFECTS BY EOE Goal Provider Goal - PATIENT/CAREGIVER WILL VERBALIZE UNDERSTANDING OF SIGNS AND SYMPTOMS THAT PUT THE PATIENT AT RISK FOR HOSPITALIZATION /EMERGENCY ROOM VISITS, WHEN TO NOTIFY NURSE/PHYSICIAN OF COMPLICATIONS/DECLINE AND WHEN TO CALL 911. Goal Provider Goal - PATIENT / CAREGIVER WILL VERBALIZE/DEMONSTRATE UNDERSTANDING OF MEASURES TO MANAGE ALTERED CARDIOVASCULAR STATUS BY EOE. Goal Provider Goal - PATIENT / CAREGIVER WILL VERBALIZE/DEMONSTRATE AN ABILITY TO ADHERE TO SELF-MANAGEMENT OF HTN TO MINIMIZE COMPLICATIONS AND AVOID HOSPITALIZATION BY END OF EPISODE. Goal Provider Goal - CHANGES IN SKIN INTEGRITY STATUS WILL BE IDENTIFIED AND REPORTED TO THE PHYSICIAN FOR PROMPT INTERVENTION. PATIENT / CAREGIVER WILL VERBALIZE/DEMONSTRATE ADEQUATE KNOWLEDGE OF INTEGUMENTARY STATUS AND APPROPRIATE MEASURES TO PROMOTE SKIN INTEGRITY AND PREVENT INJURY BY EOE Goal Provider Goal - PATIENT / CAREGIVER WILL VERBALIZE / DEMONSTRATE UNDERSTANDING OF PAIN CONTROL MEASURES BY EOE Goal Provider Goal - PATIENT/CAREGIVER WILL VERBALIZE/DEMONSTRATE UNDERSTANDING OF FALL RISK FACTORS AND IMPLEMENT STRATEGIES TO MINIMIZE FALL RISK. PATIENT/CAREGIVER WILL VERBALIZE/DEMONSTRATE AN ABILITY TO ADHERE TO FALL REDUCTION SELF-MANAGEMENT AND LIFE-STYLE CHANGES BY EOE Goal Provider Goal - PATIENT / CAREGIVER WILL VERBALIZE/DEMONSTRATE UNDERSTANDING OF MEASURES TO MANAGE ALTERED NEUROLOGICAL STATUS BY EOE. Goal Provider Goal - COPD WILL BE CONTROLLED THROUGHOUT THE EPISODE. Goal Provider Goal - FAMILY / CAREGIVERS WILL VERBALIZE/DEMONSTRATE DEMENTIA MANAGEMENT TECHNIQUES BY END OF EPISODE. Goal Provider Goal - Goal Provider Goal - Goal Provider Goal - OT LTG: PATIENT WILL DEMONSTRATE IMPROVED ABILITY TO PERFORM BED TRANSFERS IN ORDER TO REDUCE RISK OF SKIN BREAKDOWN AND TO IMPROVE PARTICIPATION IN ADLS FROM MIN A TO SUP WITHIN 8 WEEKS OT STG: PATIENT WILL DEMONSTRATE IMPROVED ABILITY TO PERFORM CHAIR TRANSFER WITH CONTACT GUARD ASSISTANCE WITHIN 4 WEEKS OT LTG: PATIENT WILL DEMONSTRATE IMPROVED ABILITY TO PERFORM CHAIR TRANSFERS TO REDUCE THE RISK OF SKIN BREAKDOWN AND IMPROVE PARTICIPATION IN ADLS FROM MOD A TO SUP WITHIN 8 WEEKS OT LTG: PATIENT WILL DEMONSTRATE IMPROVED ABILITY TO PERFORM TOILET TRANSFERS TO REDUCE FALL RISK AND RISK OF INCONTINENCE AND UTI DEVELOPMENT FROM MIN A TO SUP WITHIN 8 WEEKS OT LTG: PATIENT WILL DEMONSTRATE IMPROVED ABILITY AND SAFETY TO PERFORM BATH/SHOWER TRANSFER FROM MOD A TO CGA WITHIN 8 WEEKS OT LTG: PATIENT WILL DEMONSTRATE IMPROVED POSTURAL CONTROL AND DECREASED FALL RISK EVIDENCED BY AN IMPROVEMENT IN FUNCTIONAL REACH SCORE FROM 0 TO 5 WITHIN 8 WEEK IN ORDER TO DECREASE RISK OF FALLING OT LTG: PATIENT WILL DEMONSTRATE IMPROVED BUE MUSCLE STRENGTH EVIDENCED BY AN IMPROVEMENT IN MMT/FUNCTIONAL STRENGTH FROM 4-/5 TO 4+/5 WITHIN 8 WEEKS IN ORDER TO INCREASE INDEPENDENCE WITH FUNCTIONAL TRANSFERS OT LTG: PATIENT WILL MAINTAIN OXYGEN SATURATION WITHIN PHYSICIAN ORDERED PARAMETERS THROUGHOUT THE EPISODE OF CARE. OT LTG: PATIENT WILL DEMONSTRATE UNDERSTANDING OF PAIN MANAGEMENT TECHNIQUES NEEDED DURING EPISODE OF CARE OT LTG: PATIENT/CAREGIVER WILL BE ABLE TO IMPLEMENT RECOMMENDATIONS SPECIFIC TO FALL REDUCTION FOR IMPROVED ADL/IADL COMPLETION AND HOME SAFETY BY END OF EPISODE. Progress Notes Progress Notes <paragraph>[Visit Date: 2024 by RUFUS SHIPMAN LPN]:</paragraph><paragraph>PATIENT ALERT TO SELF AND PLACE WITH FORGETFULNESS AT BASELINE. PATIENTS LS CLEAR BILATERAL AND NO EDEMA TO LOWER EXTREMITIES. PATIENT DENIES ANY PAIN OR PULMONARY DISTRESS AT THIS TIME. SN EDUCATED PATIENT AND CAREGIVER ON THE IMPORTANCE OF INCREASING FLUIDS THROUGHOUT THE DAY TO HELP PREVENT UTI AND DEHYDRATION AND CONSTIPATION. SN EDUCATED PATIENT AND CAREGIVER ON REPOSITIONING EVERY 1-2 HOURS TO HELP PREVENT SKIN BREAKDOWN. PATIENT IS HOMEBOUND RELATED TO DECREASE STRENGHT AND POOR ENDURANCE WITH COGNITIVE DECLINE. MAKING IT A TAXING EFFORT TO LEAVE THE HOME WITHOUT THE ASSISTANCE OF ANOTHER PERSON.</paragraph> Encounters Start Date/Time End Date/Time Encounter Type Admission Type Attending [facility] Care Department Encounter ID Discharge Date Discharge Status Discharge Condition Discharge Reason Percent Goals Met 2025-03-16 00:00:00 2025-05-14 00:00:00 Outpatient NEW ADMISSION BRIAN LOPEZ [facility] [id number] 13.51
== END 2025-04-05 16:34 | disposition home or self-care (01) ==
LOC: HO.HSMS 15:18
PROVIDERS: PCP Internal Medicine; Visit Provider Physician Assistant Medical
DX: F51.01 Primary insomnia (principal); G30.0 Alzheimer's disease with early onset; F02.A3 Dementia in other diseases classified elsewhere, mild, with mood disturbance; G31.84 Mild cognitive impairment of uncertain or unknown etiology; F32.0 Major depressive disorder, single episode, mild; F41.9 Anxiety disorder, unspecified
CPT/HCPCS: 99214

== ENCOUNTER → 2025-04-05 15:17 | Outpatient (BNVA) | payer MEDICARE, BC, SELFPAY | PROVIDERS: PCP Internal Medicine; Visit Provider Physician Assistant Medical | DX: F51.01 Primary insomnia (principal); G30.0 Alzheimer's disease with early onset; F32.0 Major depressive disorder, single episode, mild; F41.9 Anxiety disorder, unspecified; F02.A3 Dementia in other diseases classified elsewhere, mild, with mood disturbance | CPT/HCPCS: 99212 ==